=== PATIENT | female | born 1940 | race Caucasian/White ===

== ENCOUNTER 2016-10-30 16:58 | Inpatient (IN) | payer OTHER ==
[~2016-10-30] VITALS: Ht 160 cm; Wt 77.1 kg
--- NOTE | ~2016-10-30 | HC ---
[facility] [place] [address] CONSULTATION Name: AMARILYS FAITH Room #: 424-P ADM IN .R.#: [id number] Admission: 10/30/16 Attend Phys: Dontae Wilson MD Discharge: Date of : 39 Report #: [id number] THIS REPORT FOR: //name// CC: Farhad Wilson REFERRING PHYSICIAN: Dr. Wilson. REASON FOR REFERRAL: Dyspnea. HISTORY OF PRESENT ILLNESS: The patient is a 76-year-old white female who presents to the emergency room with dyspnea. She was found to be anemic. A pulmonary consultation was requested. The patient normally gets her care at [facility]. She is followed by Dr. Farhad Alaniz. She is known to have anemia in the past. She also has a history of COPD along with hypertension. Aside from dyspnea, she denies any fever, night sweats or chills, chest pain or productive cough. Her hemoglobin on admission measured 6.8. PAST MEDICAL HISTORY: Notable for COPD, severity unknown; ; hypercholesterolemia; gastroesophageal reflux disease; breast cancer, status post bilateral lumpectomy; history of peptic ulcer disease; history of anemia; history of falls; peripheral artery disease, status post bilateral external iliac stent placement; left carotid endarterectomy; chronic pain and sciatica. PAST SURGICAL HISTORY: As mentioned above including bilateral hip replacement, left shoulder replacement, oral surgery for maxillary extractions. ALLERGIES: ADHESIVE TAPE, CEPHALOSPORINS, CODEINE, AMOXICILLIN. MEDICATIONS: List reviewed and includes Advair 115 mcg 2 puffs twice a day, along with Claritin D. FAMILY HISTORY: Notable for colon cancer in the maternal grandmother. SOCIAL HISTORY: The patient has smoked, but quit many years ago. She drinks occasionally. REVIEW OF SYSTEMS: As mentioned above. Otherwise 10-point system review negative. PHYSICAL EXAMINATION: GENERAL: She is awake, alert, in no apparent distress. VITAL SIGNS: Temperature is 97.4 degrees Fahrenheit, pulse is 87, respiratory rate is 18, blood pressure 144/54 mmHg, and saturation 98%. [facility] [address] [place] [address] CONSULTATION Name: AMARILYS FAITH Room #: 424-P [facility] IN ..#: [id number] Admission: 10/30/16 Attend Phys: Dontae Wilson MD Discharge: Date of : 39 Report #: [id number] HEENT: Unremarkable. NECK: Supple. CHEST: Breath sounds are clear bilaterally without any rales or wheezes. CARDIOVASCULAR: Normal S1, S2. No murmurs or gallop. There is no JVD. There is no carotid bruit. Pulses are 2+/4+ bilaterally. ABDOMEN: Soft, nontender. It is moderately obese. No masses felt. GENITOURINARY: Deferred. RECTAL: Deferred. EXTREMITIES: There is no edema, cyanosis or clubbing. DIAGNOSTIC DATA: Chest x-ray shows cardiomegaly. The shape of the cardiac silhouette suggests probable right ventricular hypertrophy. No obvious infiltrates seen. Echocardiogram shows mild diastolic dysfunction, moderate aortic stenosis, mild mitral stenosis, pulmonary artery pressure measuring 44 mmHg. EKG shows right bundle-branch block. LABORATORY DATA: Electrolytes unremarkable. WBC 11,200 and hemoglobin 7.1. IMPRESSION: 1. Dyspnea in this 76-year-old white female. She has a history of COPD. She is anemic. Chest x-ray is relatively unremarkable. The etiology is likely multifactorial. It is felt to be related to anemia. Her chronic obstructive pulmonary disease is likely contributing, but does not have obvious evidence of exacerbation. Heart failure is possible though she does not appear to be in overt volume overload. 2. Chronic obstructive pulmonary disease, presumed exacerbation. 3. Anemia, acute on chronic. The patient has possible history of gastrointestinal bleed. GI has been consulted. RECOMMENDATIONS: Agree with bronchodilators. Agree with short course of corticosteroids. DVT and GI prophylaxis will be addressed. We will await GI workup regarding anemia. Thank you for this consultation. <ELECTRONICALLY SIGNED> By: Aj Pavon MD 11/03/16 1518 1633 02 Aj Pavon MD /nt
--- NOTE | ~2016-10-30 | HC ---
[facility] [place] [address] CONSULTATION Name: AMARILYS FAITH Room #: 424-P ADM IN .R.#: [id number] Admission: 10/30/16 Attend Phys: Dontae Wilson MD Discharge: Date of : 39 Report #: [id number] THIS REPORT FOR: //name// CC: Farhad Wilson Steve WRAY DATE OF SERVICE: 10/31/2016 DATE OF CONSULTATION: 10/31/2016 HISTORY OF PRESENT ILLNESS: The patient is a 76-year-old female with a history of chronic anemia, who underwent a colonoscopy by myself last year on 08/16/2015 which showed sigmoid diverticulosis, internal hemorrhoids, but otherwise normal. An upper endoscopy was just performed the week prior by my partner, which was essentially normal. She does take an aspirin on a regular basis. She denies any obvious bright red blood per rectum or melena. Denies any abdominal pain, no nausea or vomiting. Her hemoglobin today is 7.1, was 6.8 yesterday. In 2016, hemoglobin was in the 6th range. The patient denies any reflux or dysphagia. The patient has also been feeling dizzy at home. PAST MEDICAL HISTORY: Chronic anemia, hypertension, COPD, hyperlipidemia, gastroesophageal reflux disease, previous bilateral hip replacement, peripheral vascular disease, history of stent placement iliac, previous carotid endarterectomy, chronic back pain. MEDICATIONS ON ADMISSION: Aspirin 325 mg, iron, Claritin, Advair, fish oil, Lasix, Prinivil, Neurontin, Osteo Bi-Flex, Protonix, Ultram, Zocor. ALLERGIES: KEFLEX, CODEINE, AND AMOXICILLIN. REVIEW OF SYSTEMS: As per HPI. FAMILY HISTORY: Negative for colon cancer. SOCIAL HISTORY: She denies any tobacco or alcohol use. PHYSICAL EXAMINATION: VITAL SIGNS: Temperature is 97.4, pulse 87, blood pressure 144/52, respiratory rate is 18. GENERAL: She is alert and oriented x 3 in no acute distress. HEENT: Sclerae nonicteric. Oropharynx clear. NECK: Supple, without lymphadenopathy. CARDIOVASCULAR: Regular rate. CHEST: With decreased breath sounds bilaterally and slight expiratory wheeze on the right. [facility] [address] [place] [address] CONSULTATION Name: AMARILYS FAITH Room #: [facility] ADM IN .R.#: [id number] Admission: 10/30/16 Attend Phys: Dontae Wilson MD Discharge: Date of : 39 Report #: [id number] ABDOMEN: Soft. She is nontender, nondistended, normoactive bowel sounds. EXTREMITIES: No cyanosis, clubbing or edema. LABORATORY DATA: Sodium 136, potassium 4.2, chloride 101, bicarb 27, BUN 18, creatinine 0.9. Calcium 8.7. WBC is 11.2, hemoglobin 7.1, platelet count is 406. ASSESSMENT AND PLAN: Anemia is chronic, possibly due to gastrointestinal blood loss. There have been no signs of bright red blood per rectum or melena. Would recommend Hemoccult testing next. If positive, then would consider proceeding with an M2 capsule endoscopy as the patient did have an essentially normal EGD and colonoscopy last year. Thank you for allowing me to participate in her care. <ELECTRONICALLY SIGNED> By: Herminio Guevara MD 10/31/16 1816 1306 1410 Herminio Guevara MD /nt
--- NOTE | ~2016-10-30 | EKG ---
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
--- NOTE | ~2016-10-30 | 2DMMODE ---
[facility] [place] [address] [place] [address] 2 D/M-MODE ECHOCARDIOGRAM Name: AMARILYS FAITH Room #: 424-P ADM IN M.R.#: [id number] Admission: 10/30/16 Attend Phys: Precious Crane Discharge: Date of : 39 Date of Service: 10/31/16 1359 Report #: [id number] THIS REPORT FOR: //name// APPROVED REPORT Study performed: 10/31/2016 10:29:06 EXAM: Comprehensive 2D, Doppler, and color-flow Echocardiogram Patient Location: Bedside Room #: 424 Other Information Study Quality: Technically DifficultTechnically Limited Technically limited study due to body habitus, lung disease. Indications COPD Dyspnea Hypertension/HDD 2D Dimensions RVDd: 29.26 mm LVEF(%): 57.59 (>50%) IVSd: 11.72 (7-11mm) LVOT Diam: 15.83 (18-24mm) LVDd: 44.82 mm PWd: 13.34 (7-11mm) Ascending Ao: 31.16 (22-36mm) LVDs: 31.31 (25-40mm) Aortic Root: 25.61 mm IVC: 19.00 mm Ray's LVEF: 57.59 % Volumes Left Atrial Volume (Systole) Single Plane 4CH: 109.13 mL Single Plane 2CH: 56.66 mL LA ESV Index: 48.00 mL/m2 Aortic Valve AoV Peak Price.: 3.32 m/s AO Peak Gr.: 44.06 mmHg LVOT Max P.14 mmHg AO Mean Gr.: 25.31 mmHg LVOT Mean P.09 mmHg AO V2 Mean: 2.38 m/s LVOT Max V: 1.28 m/s AO V2 VTI: 78.17 cm LVOT Mean V: 0.82 m/s ANTOINE (VTI): 0.65 cm2 LVOT V1 VTI: 25.75 cm ANTOINE Vmax: 0.76 cm2 SV (LVOT): 50.[address] [facility] [place] [place] [facility] [email or web address] [address] 2 D/M-MODE ECHOCARDIOGRAM Name: FAITHAMARILYS GUPTA Room #: 424-P [facility] IN .R.#: [id number] Admission: 10/30/16 Attend Phys: Precious Crane Discharge: Date of : 39 Date of Service: 10/31/16 1359 Report #: [id number] Mitral Valve MV Peak Gr.: 18.22 mmHg MV Mean Gr.: 8.36 mmHg MV Decel. Time: 250.88 ms MV Max Price.: 2.13 m/s MV Mean Price.: 1.32 m/s MV VTI: 493.42 mm MVA VTI: 102.67 mm2 MV PHT: 72.75 ms IVRT: 65.74 ms Pulmonary Valve PV Peak Price.: 1.47 m/s PV Peak Gr.: 8.63 mmHg Pulmonary Vein P Vein S: 0.61 m/s P Vein A: 0.14 m/s P Vein D: 0.78 m/s P Vein A Dur.: 51.9 msec P Vein S/D Ratio: 0.78 Tricuspid Valve TR Peak Price.: 3.11 m/s RAP Estimate: 5.00 mmHg TR Peak Gr.: 38.59 mmHg Left Ventricle The left ventricle is normal size. Mild concentric left ventricular hypertrophy. The left ventricular systolic function is normal. The left ventricular ejection fraction is within the normal range. LVEF is 55-60%. Mild diastolic dysfunction is present (impaired relaxation pattern). Right Ventricle The right ventricle is normal size. The right ventricular systolic function is normal. Atria Left atrium is mildly dilated. The right atrium size is normal. Aortic Valve The aortic valve is not well visualized. No aortic regurgitation is present. There is moderate valvular aortic stenosis with maximum pressure gradient of 44 mmHg and mean pressure gradient of 25 mmHg. Mitral Valve [facility] [place] [address] [place] [address] 2 D/M-MODE ECHOCARDIOGRAM Name: AMARILYS FAITH Room #: 424-P ADM IN M.R.#: [id number] Admission: 10/30/16 Attend Phys: Precious Crane Discharge: Date of : 39 Date of Service: 10/31/16 1359 Report #: [id number] Severe mitral annular calcification is present. Trace mitral regurgitation. There is mild mitral stenosis with maximum pressure gradient of 18 mmHg and mean pressure gradient of 8 mmHg. Tricuspid Valve The tricuspid valve is normal in structure. There is trace tricuspid regurgitation. The right atrial pressure is estimated at 5 mmHg. PAP is estimated at 44 mmHg. Pulmonic Valve Pulmonic valve is not well visualized. Great Vessels The aortic root is normal in size. IVC is dilated and collapses >50% with inspiration. <Conclusion> The left ventricle is normal size. Mild concentric left ventricular hypertrophy. The left ventricular systolic function is normal. Mild diastolic dysfunction is present (impaired relaxation pattern). The right ventricle is normal size. Left atrium is mildly dilated. There is moderate valvular aortic stenosis with maximum pressure gradient of 44 mmHg and mean pressure gradient of 25 mmHg. Severe mitral annular calcification is present. There is mild mitral stenosis with maximum pressure gradient of 18 mmHg and mean pressure gradient of 8 mmHg. There is trace tricuspid regurgitation. The right atrial pressure is estimated at 5 mmHg. PAP is estimated at 44 mmHg. <ELECTRONICALLY SIGNED> By: Donta Martel MD 10/31/16 1359 1359 1359 Donta Martel MD /INF
[~2016-10-30 16:58] MED LIST: ADVAIR HFA115 MCG/21 INH; ASPIRIN325 PO; CENTRUM SILVER1 EAC4 PO; CLARITIN-D 12 H1 TA1 PO; CLARITIN10 MG PO; DOXYCYCLINE 10100 MG PO; FISH OIL 1,001000 MG PO; HYDROCODON-ACE1 EAC7 PO; IRON325 PO; LASIX 40 MG TAB40 M2 PO; NEURONTIN 300300 M1 PO; OSTEO BI-FLEX1 EAC1 PO; PLAVIX 75 MG TA75 M1 PO; PRINIVIL20 MG PO; PROAIR HFA8.5 GM INH; PROTONIX40 M1 PO; TRAMADOL 50 MG50 MG PO; ZOCOR40 MG PO
[2016-10-30 17:12] VITALS: BP 128/44
[2016-10-30 18:34] LABS: HEMATOCRIT 21.8 % (37.0-47.0); HEMOGLOBIN 6.8 gm/dL (12.0-15.0); MCH 27.4 pg (26.0-34.0); MCHC 31.1 g/dL (28.0-37.0); MCV 88.3 fL (80.0-100.0); PLATELET COUNT 390 thou/uL (150-400); RBC 2.47 mil/uL (4.20-5.00); WBC 10.8 thou/uL (4.0-11.0)
[2016-10-30 18:35] LABS: MANUAL DIFF YES
[2016-10-30 18:42] LABS: ANION GAP 6 mmol/L (7-16); BUN 18 mg/dL (7-18); CALCIUM 8.4 mg/dL (8.5-10.1); CHLORIDE 99 mmol/L (98-107); CO2 27 mmol/L (21-32); CREATININE 0.9 mg/dL (0.6-1.0); GLUCOSE 96 mg/dL (74-106); POTASSIUM 5.1 mmol/L (3.5-5.1); SODIUM 132 mmol/L (136-145)
[2016-10-30 18:55] LABS: NT-PRO BRAIN NAT PEPTIDE 2629 pg/mL (<300); TROPONIN-I < 0.04 ng/mL (<0.04-0.07)
[2016-10-30 19:01] LABS: ABSOLUTE NEUTROPHILS 8.7 thou/uL (1.4-8.2); ANISOCYTOSIS 1+; TOTAL CELL COUNT 100
[2016-10-30 20:30] VITALS: BP 124/54
[2016-10-30 21:15] VITALS: BP 134/86
[2016-10-30 22:22] VITALS: BP 146/66
[2016-10-31] VITALS (7 sets, daily range): BP systolic 131–149; BP diastolic 51–87
[2016-10-31 05:36] LABS: HEMATOCRIT 22.3 % (37.0-47.0); HEMOGLOBIN 7.1 gm/dL (12.0-15.0); MCH 27.7 pg (26.0-34.0); MCHC 31.8 g/dL (28.0-37.0); MCV 87.1 fL (80.0-100.0); RBC 2.55 mil/uL (4.20-5.00); RDW 17.9 % (10.5-14.5); WBC 11.2 thou/uL (4.0-11.0)
[2016-10-31 06:02] LABS: ANION GAP 8 mmol/L (7-16); BUN 18 mg/dL (7-18); CALCIUM 8.7 mg/dL (8.5-10.1); CHLORIDE 101 mmol/L (98-107); CHOLESTEROL 115 mg/dL (<200); CO2 27 mmol/L (21-32); CREATININE 0.9 mg/dL (0.6-1.0); GLUCOSE 173 mg/dL (74-106); HDL CHOLESTEROL 59 mg/dL (>40); LDL CHOLESTEROL 47 mg/dL (<100); NT-PRO BRAIN NAT PEPTIDE 3384 pg/mL (<300); POTASSIUM 4.2 mmol/L (3.5-5.1); SERUM ASSESSMENT Clear; SODIUM 136 mmol/L (136-145); TC:HDL 1.9 Ratio (Not establshd); TRIGLYCERIDE 46 mg/dL (<150); VLDL 9 mg/dL (<40)
[2016-11-01 03:55] LABS: CALCIUM 8.3 mg/dL (8.5-10.1); CREATININE 0.9 mg/dL (0.6-1.0); POTASSIUM 4.3 mmol/L (3.5-5.1)
[2016-11-01 04:00] VITALS: BP 133/54
[2016-11-01 04:25] LABS: HEMATOCRIT 28.2 % (37.0-47.0); MCH 28.5 pg (26.0-34.0); MCHC 32.8 g/dL (28.0-37.0); PLATELET COUNT 400 thou/uL (150-400); RBC 3.24 mil/uL (4.20-5.00); RDW 17.4 % (10.5-14.5); WBC 13.1 thou/uL (4.0-11.0)
[2016-11-01 04:31] LABS: HEMOGLOBIN 9.2 gm/dL (12.0-15.0); MANUAL DIFF YES
[2016-11-01 05:48] LABS: ABSOLUTE NEUTROPHILS 12.1 thou/uL (1.4-8.2); ANISOCYTOSIS 3+; METAMYELOCYTES 1 %; NUCLEATED RBCS 1 /100WBC; TOTAL CELL COUNT 100
[2016-11-01 05:49] LABS: HYPOCHROMASIA SLIGHT; LARGE PLATELETS OCCASIONAL; MACROCYTES 2+; MICROCYTES 1+; POLYCHROMASIA OCCASIONAL
[2016-11-01 07:56] VITALS: BP 134/46
[2016-11-01 15:56] VITALS: BP 141/50
[2016-11-01 19:39] VITALS: BP 117/45
[2016-11-02 03:22] VITALS: BP 124/50
[2016-11-02 05:33] LABS: HEMATOCRIT 28.9 % (37.0-47.0); HEMOGLOBIN 9.3 gm/dL (12.0-15.0); MCH 28.1 pg (26.0-34.0); MCHC 32.1 g/dL (28.0-37.0); MCV 87.6 fL (80.0-100.0); RBC 3.3 mil/uL (4.20-5.00); RDW 17.9 % (10.5-14.5); WBC 13.3 thou/uL (4.0-11.0)
[2016-11-02 05:46] LABS: CALCIUM 8.7 mg/dL (8.5-10.1); POTASSIUM 4.2 mmol/L (3.5-5.1)
[2016-11-02 07:32] VITALS: BP 130/56
[2016-11-02 15:10] VITALS: BP 149/55
[2016-11-02 19:54] VITALS: BP 133/48
[2016-11-03 03:59] VITALS: BP 152/63
[2016-11-03 05:34] LABS: HEMATOCRIT 31.5 % (37.0-47.0); HEMOGLOBIN 10.2 gm/dL (12.0-15.0); MCH 28.5 pg (26.0-34.0); MCHC 32.4 g/dL (28.0-37.0); MCV 87.8 fL (80.0-100.0); RBC 3.59 mil/uL (4.20-5.00); RDW 17.7 % (10.5-14.5); WBC 13.9 thou/uL (4.0-11.0)
[2016-11-03 05:48] LABS: POTASSIUM 4.2 mmol/L (3.5-5.1)
[2016-11-03 06:06] LABS: CALCIUM 8.8 mg/dL (8.5-10.1); CREATININE 1.2 mg/dL (0.6-1.0)
[2016-11-03 07:39] VITALS: BP 121/44
[2016-11-03 16:11] VITALS: BP 140/56
[2016-11-03 20:00] VITALS: BP 127/56
[2016-11-04 04:00] VITALS: BP 150/54
[2016-11-04 08:20] VITALS: BP 144/65
[2016-11-04] MEDS ORDERED: AUGMENTIN 500-1 EACH PO (09:29)
[2016-11-04] MEDS ORDERED: DUONEB 2.5-0.5 M3 ML INH (09:30)
[2016-11-04] MEDS ORDERED: MEDROL DOSPAK21 TA1 PO (09:31)
[2016-11-04 09:41] VITALS: BP 144/65
[2016-11-04 11:51] VITALS: BP 144/65
[2016-11-04 12:03] VITALS: BP 144/65
[2016-11-04 12:30] VITALS: BP 144/65
== END 2016-11-04 16:33 | disposition home health service (06) | DRG 190 ==
LOC: ER 16:58 → EROBS 20:33 → 4E 20:33
PROVIDERS: Emergency Medicine; Family Medicine; Internal Medicine Pulmonary Disease; Nurse Practitioner Adult Health; Nurse Practitioner Family
PROC: 30233N1 Transfusion of Nonautologous Red Blood Cells into Peripheral Vein, Percutaneous Approach (ICD-10-PCS; principal; 2016-10-31)
DX: J44.1 Chronic obstructive pulmonary disease with (acute) exacerbation (principal); I50.33 Acute on chronic diastolic (congestive) heart failure; K92.2 Gastrointestinal hemorrhage, unspecified; D62 Acute posthemorrhagic anemia; K59.00 Constipation, unspecified; E78.00 Pure hypercholesterolemia, unspecified; I73.9 Peripheral vascular disease, unspecified; M54.30 Sciatica, unspecified side; I50.9 Heart failure, unspecified; I11.0 Hypertensive heart disease with heart failure; K21.9 Gastro-esophageal reflux disease without esophagitis; E78.5 Hyperlipidemia, unspecified; Z96.643 Presence of artificial hip joint, bilateral; Z96.612 Presence of left artificial shoulder joint; Z85.3 Personal history of malignant neoplasm of breast; Z91.81 History of falling; Z98.42 Cataract extraction status, left eye; Z98.41 Cataract extraction status, right eye; Z87.891 Personal history of nicotine dependence; Z95.820 Peripheral vascular angioplasty status with implants and grafts; Z79.51 Long term (current) use of inhaled steroids; Z79.82 Long term (current) use of aspirin; Z79.899 Other long term (current) drug therapy; Z88.1 Allergy status to other antibiotic agents; Z88.8 Allergy status to other drugs, medicaments and biological substances
CPT/HCPCS: 10084

== ENCOUNTER → 2016-11-19 | Outpatient (CLI) | payer OTHER ==
[~2016-11-19] MED LIST changes: +AMBIEN 5 MG TABL5 M1 PO; +ASPIR 8181 MG PO; +AUGMENTIN 500-1 EACH PO; +DULCOLAX STOOL100 MG PO; +DUONEB 2.5-0.5 M3 ML INH; +MEDROL DOSPAK21 TA1 PO
== END | disposition home or self-care (01) ==
LOC: GI 06:59
DX: D64.89 Other specified anemias (principal)

== ENCOUNTER → 2016-11-25 | Outpatient (CLI) | payer OTHER ==
[~2016-11-25] MED LIST changes: -ASPIR 8181 MG PO
== END ==
LOC: HYPER 07:03
DX: T81.89XA Other complications of procedures, not elsewhere classified, initial encounter (principal); L97.812 Non-pressure chronic ulcer of other part of right lower leg with fat layer exposed; N17.9 Acute kidney failure, unspecified; D50.9 Iron deficiency anemia, unspecified; J44.1 Chronic obstructive pulmonary disease with (acute) exacerbation; R06.00 Dyspnea, unspecified; J90 Pleural effusion, not elsewhere classified; J44.9 Chronic obstructive pulmonary disease, unspecified; I11.0 Hypertensive heart disease with heart failure; I50.9 Heart failure, unspecified; E78.00 Pure hypercholesterolemia, unspecified; K21.9 Gastro-esophageal reflux disease without esophagitis; Z85.3 Personal history of malignant neoplasm of breast; Z87.891 Personal history of nicotine dependence; Z72.89 Other problems related to lifestyle; Y83.8 Other surgical procedures as the cause of abnormal reaction of the patient, or of later complication, without mention of misadventure at the time of the procedure

== ENCOUNTER 2016-11-28 11:00 | Inpatient (IN) | payer OTHER ==
[~2016-11-28] VITALS: Ht 160 cm; Wt 98.8 kg
--- NOTE | ~2016-11-28 | HC ---
[facility] [place] [address] CONSULTATION Name: AMARILYS FAITH Room #: 462-P ADM IN .R.#: [id number] Admission: 11/28/16 Attend Phys: Quincy Whaley MD Discharge: Date of : 39 Report #: [id number] THIS REPORT FOR: //name// CC: Farhad Whaley DATE OF SERVICE: 12/01/2016 CHIEF COMPLAINT: Ulcerations versus surgical wounds to the right lower extremity. HISTORY OF PRESENT ILLNESS: This is a 76-year-old female patient who presented to the hospital with shortness of breath and was admitted. We have followed her for surgical wounds involving her right lower leg following Mohs surgery. She is complaining of some pain in that location. Overall, feeling better and feels that she may be able to leave the hospital tomorrow. PAST MEDICAL HISTORY: Positive for acute kidney injury, anemia, COPD and history of gastrointestinal bleeding. ALLERGIES: ADHESIVE, KEFLEX, CODEINE, LEVAQUIN AND AMOXICILLIN. CURRENT MEDICATIONS: Include aspirin, ferrous sulfate, Claritin D, Advair, fish oil, furosemide, hydrocodone, lisinopril, gabapentin, pantoprazole, tramadol and simvastatin. FAMILY HISTORY: Noncontributory. REVIEW OF SYSTEMS: CONSTITUTIONAL: The patient denies fever, chills or weight loss. NEUROLOGICAL: The patient denies focal weakness, numbness or tingling. EYES: The patient denies visual changes. Denies drainage. ENT: The patient denies earache, nasal drainage or sore throat. CARDIOVASCULAR: The patient denies chest pain, palpitation or diaphoresis. PULMONARY: The patient with mild shortness of breath. She is on chronic oxygen. GASTROINTESTINAL: The patient does complain of some abdominal discomfort and notes recent upper GI bleeding. Denies abdominal bloating at present. GENITOURINARY: The patient denies frequency or urgency of urination. Denies dysuria. ORTHOPEDIC: The patient does note ulcerations/surgical wounds to the right lower extremity. Other systems are negative. PHYSICAL EXAMINATION: VITAL SIGNS: The patient's vital signs at this time include temperature 37.7, pulse 91, respiratory rate of 16 and blood pressure of 116/46. [facility] [address] [place] [address] CONSULTATION Name: AMARILYS FAITH Room #: 462-[facility] IN [facility].#: [id number] Admission: 11/28/16 Attend Phys: Quincy Whaley MD Discharge: Date of : 39 Report #: [id number] GENERAL: This is a chronically ill-appearing female patient who appears to be in minimal distress. HEENT: Head normocephalic. clear. NECK: Supple. LUNGS: Diminished. HEART: Regular rhythm. ABDOMEN: Soft, somewhat distended and nontender. LOWER EXTREMITIES: Demonstrate easily palpable distal pulses. She has 2+ distal edema. She has 2 circular wounds involving the right lower leg. There is a mix of some granulation and a little bit of fibrin. No evidence of infection. NEUROLOGIC: She is alert, oriented and appropriate. LABORATORY DATA: Includes white blood cell count 10.7, hemoglobin 7.3, hematocrit 22.8 and platelet count is 396,000. Sodium 140, potassium 4.2, chloride 106, CO2 of 24, BUN 10, creatinine 0.8 and glucose 127. CLINICAL IMPRESSION: 1. Surgical wounds to the right lower extremity following Mohs surgery. 2. Chronic obstructive pulmonary disease. 3. Upper gastrointestinal bleeding. RECOMMENDATIONS: At this point in time, we will use topical Medihoney to the open areas, followed by a foam secondary dressing, elevation when possible. This could be changed on a Wednesday, Wednesday and Wednesday basis. Continue nutritional support. Continue all medications. I appreciate being asked to see her in consultation. <ELECTRONICALLY SIGNED> By: Blaise Fiore MD 12/02/16 1030 1940 0145 Blaise Fiore MD /nt
--- NOTE | ~2016-11-28 | HC ---
[facility] [place] [address] CONSULTATION Name: AMARILYS FAITH Room #: 462-P [facility] IN ..#: [id number] Admission: 11/28/16 Attend Phys: Quincy Whaley MD Discharge: Date of : 39 Report #: [id number] THIS REPORT FOR: //name// CC: Farhad Whaley MD DATE OF SERVICE: 11/29/2016 REQUESTING PROVIDER: Quincy Whaley MD REASON FOR CONSULTATION: GI bleed, anemia. HISTORY OF PRESENT ILLNESS: This is a 76-year-old female who is readmitted with again a drop in her hemoglobin, but no overt sign of GI blood loss. The patient apparently had an EGD and a colonoscopy very recently and it was normal, just like what it was a year ago. The patient also had a capsule study of her small bowel recently. Unfortunately, I cannot find the reports of this at this time. This was done, I believe, approximately 11 or 12 days ago now. I will have to check into our system that we have through the office as well. Again, there has been no overt sign of bleeding, however. PAST MEDICAL HISTORY: Extensive and reviewable in the computerized medical records. CURRENT MEDICATIONS: Include albuterol, atorvastatin, Dulcolax, ferrous sulfate, gabapentin, hydrocodone, lisinopril, pantoprazole twice a day p.o., MiraLax, Zofran and Ambien, both of the latter 2 are p.r.n. ALLERGIES: There are multiple drug allergies including CODEINE, CEPHALEXIN, AMOXICILLIN and LEVOFLOXACIN. FAMILY AND SOCIAL HISTORY: Noncontributory. PHYSICAL EXAMINATION: VITAL SIGNS: Since admission, she has been afebrile. She has been hemodynamically stable. LUNGS: Clear. CARDIOVASCULAR: Regular rhythm. ABDOMEN: Soft and nontender. LABORATORY DATA: Her BUN is 30, creatinine is 1. Electrolytes are normal. LFTs are normal. Albumin is 3.0. BNP is 3384. She has a low iron and TIBC that is on the high end of normal and a low iron percent saturation. PT and PTT are normal. White count is normal, hemoglobin 6.1, platelet count is normal. [address] [address] CONSULTATION Name: AMARILYS FAITH Room #: 462- ADM IN M.R.#: [id number] Admission: 11/28/16 Attend Phys: Quincy Whaley MD Discharge: Date of : 39 Report #: [id number] IMPRESSION: Iron deficiency anemia that is recurrent. There has been no overt sign of GI blood loss. The patient has had a recent EGD and colonoscopy along with previous EGD and colonoscopies that have been nonrevealing. Apparently, the patient had a capsule study. I need to try to figure out the results of that and whether it has been read yet. I cannot find it in the system here at the hospital, so I will check our office system to see if Dr. Guevara had looked at that yet, but let us see what that shows and my recommendation, otherwise is to continue close clinical followup and transfuse as necessary. <ELECTRONICALLY SIGNED> By: Herminio Guevara MD 12/02/16 1005 0600 1313 Edgar Do MD /nt
--- NOTE | ~2016-11-28 | P ---
[facility] [place] [address] PROCEDURE REPORT Name: AMARILYS FAITH Room #: 462-P [facility] IN .R.#: [id number] Admission: 11/28/16 Attend Phys: Quincy Whaley MD Discharge: Date of : 39 Report #: [id number] THIS REPORT FOR: //name// CC: Farhad Whaley BRIEF HISTORY: The patient is a 76-year-old woman with recurrent anemia and Hemoccult positive stools. Within the past year, she has had colonoscopy and upper endoscopy, which have been nondiagnostic. M2 capsule done recently revealed at least 1 nonbleeding AVM of the duodenum and a small blood clot in the very proximal jejunum. Small-bowel endoscopy was recommended. PREOPERATIVE DIAGNOSIS: Gastrointestinal bleeding. POSTOPERATIVE DIAGNOSES: 1. 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 3. Small hiatus hernia. MEDICATIONS: Deep sedation with propofol per anesthesia. SPECIMEN: None. ESTIMATED BLOOD LOSS: 5 mL. PROCEDURE: Small-bowel endoscopy with hemostasis. FINDINGS: Prior to propofol sedation, the procedure of small-bowel endoscopy and intervention was discussed with the patient as well as potential risks, benefits, and complications. She indicates she understands and desires to proceed. With the patient in left lateral decubitus position, the [employer] video endoscope was inserted in the cervical esophagus under direct vision without difficulty. Examination of this organ through its entire length revealed normal esophageal mucosa. There was also a small 2 cm sliding type hiatus hernia. There was no blood within the hiatus hernia. The scope was advanced into the stomach, which was examined on end view as well as retroflexed views. In the body of the posterior gastric wall, a prominent was seen, it was not bleeding, but was suspicious for an AVM and was treated with a BICAP probe with good results. The stomach was then examined on end view as well as retroflexed views. No other mucosal abnormalities were seen. No masses were seen in the cardia. The pylorus was normal. Upon introduction of the scope into the duodenal bulb, there was a small collection of red blood. It was washed away and the underlying mucosa was normal. We could not find any lesions within the duodenal bulb to cause bleeding. This may have reflux from the more distal duodenum. In [facility] [address] [place] [address] PROCEDURE REPORT Name: AMARILYS FAITH Room #: 462-P [facility] IN [facility]#: [id number] Admission: 11/28/16 Attend Phys: Quincy Whaley MD Discharge: Date of : 39 Report #: [id number] the second and third portion of duodenum, 2 AVMs were seen. Two were seen in third portion of duodenum. One had a typical appearance of an AVM, was destroyed with the BICAP probe. The second, once it was touched, started oozing blood briskly and with multiple applications of BICAP probe, bleeding was controlled. We then advanced the scope through the entire duodenal sweep and into the jejunum and past the scope as far as possible into the mid jejunum. Upon slow withdrawal of the scope, the mucosa was inspected. No additional bleeding lesions were seen. No other vascular ectasias were seen. The scope was withdrawn. The patient tolerated the procedure well. DISPOSITION: The patient with GI bleeding on several occasions. Four small-bowel AVMs and one gastric AVM were identified and treated. We will monitor hemoglobin. The patient should take iron and have her hemoglobin monitor as an outpatient. If she has further bleeding or further evidence of blood loss, repeat an M2 capsule study may be reasonable. If further intervention needed, she may require a double balloon endoscopy at a tertiary facility. <ELECTRONICALLY SIGNED> By: Cristian Gómez MD 12/01/16 1601 1210 1259 Cristian Gómez MD /nt
--- NOTE | ~2016-11-28 | EKG ---
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: SERGIO : 1940 Requested By: Avinash Bradshaw Order Number: [id number] MD: Rajesh Mccollum Measurements Intervals [place] Rate: 86 P: 61 WA: 200 QRS: 13 QRSD: 151 T: 12 QT: 399 QTc: 478 Interpretive Statements Sinus rhythm Right bundle branch block Compared to ECG 10/30/2016 18:38:45 No significant changes Electronically Signed On 11-30-2016 13:35:06 CDT by Rajesh Mccollum [email or web address] <ELECTRONICALLY SIGNED> By: Rajesh Mccollum MD, [facility] 11/30/16 1335 1155 115 Rajesh Mccollum MD, [facility] /EPI
[2016-11-28 11:00] VITALS: BP 111/69
[~2016-11-28 11:00] MED LIST changes: -AMBIEN 5 MG TABL5 M1 PO; -DULCOLAX STOOL100 MG PO
[2016-11-28 11:55] LABS: MCV 87.6 fL (80.0-100.0); PLATELET COUNT 528 thou/uL (150-400); RBC 2.19 mil/uL (4.20-5.00); WBC 9.4 thou/uL (4.0-11.0)
[2016-11-28 11:56] LABS: ANION GAP 7 mmol/L (7-16); BUN 35 mg/dL (7-18); CALCIUM 9.1 mg/dL (8.5-10.1); CHLORIDE 102 mmol/L (98-107); CO2 28 mmol/L (21-32); CREATININE 1.3 mg/dL (0.6-1.0); GLUCOSE 131 mg/dL (74-106); MANUAL DIFF YES; POTASSIUM 4.9 mmol/L (3.5-5.1); SODIUM 137 mmol/L (136-145)
[2016-11-28 11:57] LABS: HEMATOCRIT 19.1 % (37.0-47.0); HEMOGLOBIN 6.1 gm/dL (12.0-15.0)
[2016-11-28 12:02] LABS: ALKALINE PHOSPHATASE 102 U/L (46-116); DIRECT BILIRUBIN < 0.1 mg/dL (<0.1-0.3); SGOT 28 U/L (15-37); SGPT 20 U/L (30-65); TOTAL BILIRUBIN 0.2 mg/dL (<0.1-1.0)
[2016-11-28 12:04] LABS: APTT 26.6 Seconds (24.5-32.8); PROTIME 9.5 Seconds (9.3-11.4)
[2016-11-28 12:43] LABS: ANISOCYTOSIS 2+; POLYCHROMASIA 1+; TOTAL CELL COUNT 100
[2016-11-28 12:44] LABS: HYPOCHROMASIA 2+; OVALOCYTES FEW; POIKILOCYTOSIS SLIGHT
[2016-11-28 14:06] VITALS: BP 103/40
[2016-11-28 14:42] VITALS: BP 112/32
[2016-11-28 15:00] VITALS: BP 113/34
[2016-11-28] MEDS ORDERED: DULCOLAX STOOL100 MG PO (19:31)
[2016-11-28] MEDS ORDERED: AMBIEN 5 MG TABL5 M1 PO (19:32)
[2016-11-28 20:10] VITALS: BP 119/48
[2016-11-28 20:45] VITALS: BP 105/44; BP 107/38
[2016-11-29 02:57] LABS: WBC 8.2 thou/uL (4.0-11.0)
[2016-11-29 02:59] LABS: MCH 28.8 pg (26.0-34.0); MCHC 32.3 g/dL (28.0-37.0); MCV 89.3 fL (80.0-100.0); RBC 2.13 mil/uL (4.20-5.00)
[2016-11-29 03:06] LABS: CALCIUM 8.4 mg/dL (8.5-10.1); POTASSIUM 4.3 mmol/L (3.5-5.1)
[2016-11-29 03:10] LABS: HEMOGLOBIN 6.1 gm/dL (12.0-15.0)
[2016-11-29 04:00] VITALS: BP 137/50
[2016-11-29 07:55] VITALS: BP 121/36
[2016-11-29 11:18] LABS: MCH 28.7 pg (26.0-34.0)
[2016-11-29 11:20] LABS: MCHC 31.9 g/dL (28.0-37.0); RBC 1.77 mil/uL (4.20-5.00); RDW 19.1 % (10.5-14.5); WBC 6.2 thou/uL (4.0-11.0)
[2016-11-29 11:25] LABS: HEMATOCRIT 15.9 % (37.0-47.0); HEMOGLOBIN 5.1 gm/dL (12.0-15.0)
[2016-11-29 12:06] VITALS: BP 122/33
[2016-11-29 12:13] VITALS: BP 117/43; BP 120/41; BP 122/33
[2016-11-29 15:03] VITALS: BP 117/43
[2016-11-29 17:07] LABS: HEMATOCRIT 23.7 % (37.0-47.0)
[2016-11-29 17:11] LABS: HEMOGLOBIN 7.8 gm/dL (12.0-15.0)
[2016-11-30 04:37] VITALS: BP 132/56
[2016-11-30 04:45] LABS: HEMATOCRIT 22.9 % (37.0-47.0); HEMOGLOBIN 7.8 gm/dL (12.0-15.0); MCH 29.9 pg (26.0-34.0); MCHC 33.9 g/dL (28.0-37.0); MCV 88.1 fL (80.0-100.0); RBC 2.6 mil/uL (4.20-5.00); RDW 17.5 % (10.5-14.5); WBC 9.7 thou/uL (4.0-11.0)
[2016-11-30 05:03] LABS: CALCIUM 8.5 mg/dL (8.5-10.1); CREATININE 0.8 mg/dL (0.6-1.0); POTASSIUM 4.2 mmol/L (3.5-5.1)
[2016-11-30 08:10] VITALS: BP 130/48
[2016-11-30 12:58] VITALS: BP 124/61
[2016-11-30 16:00] VITALS: BP 129/95
[2016-11-30 20:29] VITALS: BP 122/89
[2016-12-01 04:19] VITALS: BP 130/34
[2016-12-01 04:57] LABS: HEMATOCRIT 22.8 % (37.0-47.0); HEMOGLOBIN 7.3 gm/dL (12.0-15.0); MCH 28.3 pg (26.0-34.0); MCHC 32.1 g/dL (28.0-37.0); RBC 2.59 mil/uL (4.20-5.00); RDW 18.1 % (10.5-14.5); WBC 10.7 thou/uL (4.0-11.0)
[2016-12-01 05:10] LABS: CALCIUM 8.5 mg/dL (8.5-10.1); CREATININE 0.8 mg/dL (0.6-1.0); POTASSIUM 4.2 mmol/L (3.5-5.1)
[2016-12-01 08:48] VITALS: BP 135/60
[2016-12-01 13:48] VITALS: BP 145/75
[2016-12-01 15:10] VITALS: BP 145/75
[2016-12-01 17:18] VITALS: BP 123/57
[2016-12-01 19:26] VITALS: BP 116/46
[2016-12-02 03:43] VITALS: BP 84/53
[2016-12-02 06:07] LABS: HEMOGLOBIN 7.3 gm/dL (12.0-15.0); MCH 28.8 pg (26.0-34.0); MCV 87.3 fL (80.0-100.0); RBC 2.52 mil/uL (4.20-5.00); RDW 18.1 % (10.5-14.5); WBC 10.3 thou/uL (4.0-11.0)
[2016-12-02 08:11] VITALS: BP 142/45
[2016-12-02 12:39] VITALS: BP 140/52
[2016-12-02] MEDS ORDERED: ASPIR 8181 MG PO (13:12)
== END 2016-12-02 15:11 | disposition home health service (06) | DRG 378 ==
LOC: ER 11:00 → 4S 13:54 → 4W 13:54 → EROBS 13:54 → 4S 14:44 → 4W 11-29 23:28 → ENTRNSPT 12-02 14:47 → 4W 12-02 15:11
PROVIDERS: Emergency Medicine; Hospitalist; Specialist
PROC: 30233N1 Transfusion of Nonautologous Red Blood Cells into Peripheral Vein, Percutaneous Approach (ICD-10-PCS; 2016-11-29)
PROC: 0DJ08ZZ Inspection of Upper Intestinal Tract, Via Natural or Artificial Opening Endoscopic (ICD-10-PCS; principal; 2016-12-01)
DX: K31.811 Angiodysplasia of stomach and duodenum with bleeding (principal); D62 Acute posthemorrhagic anemia; I50.32 Chronic diastolic (congestive) heart failure; N17.9 Acute kidney failure, unspecified; J44.9 Chronic obstructive pulmonary disease, unspecified; E78.00 Pure hypercholesterolemia, unspecified; K21.9 Gastro-esophageal reflux disease without esophagitis; Z96.643 Presence of artificial hip joint, bilateral; I73.9 Peripheral vascular disease, unspecified; G89.29 Other chronic pain; M54.9 Dorsalgia, unspecified; M54.30 Sciatica, unspecified side; Z96.612 Presence of left artificial shoulder joint; D50.9 Iron deficiency anemia, unspecified; K44.9 Diaphragmatic hernia without obstruction or gangrene; E78.5 Hyperlipidemia, unspecified; I11.0 Hypertensive heart disease with heart failure; K59.00 Constipation, unspecified; Z90.49 Acquired absence of other specified parts of digestive tract; Z85.3 Personal history of malignant neoplasm of breast; Z98.42 Cataract extraction status, left eye; Z98.41 Cataract extraction status, right eye; Z91.81 History of falling; Z79.899 Other long term (current) drug therapy; Z88.8 Allergy status to other drugs, medicaments and biological substances; Z88.6 Allergy status to analgesic agent; Z88.1 Allergy status to other antibiotic agents; Z87.891 Personal history of nicotine dependence; Z85.828 Personal history of other malignant neoplasm of skin
CPT/HCPCS: 10045; 10100; 62110; 62900; 70005

== ENCOUNTER → 2016-12-09 | Outpatient (CLI) | payer OTHER ==
[~2016-12-09] MED LIST changes: +AMBIEN 5 MG TABL5 M1 PO; +ASPIR 8181 MG PO; +DULCOLAX STOOL100 MG PO
== END ==
LOC: HYPER 06:43
DX: T81.89XD Other complications of procedures, not elsewhere classified, subsequent encounter (principal); L97.812 Non-pressure chronic ulcer of other part of right lower leg with fat layer exposed; J44.1 Chronic obstructive pulmonary disease with (acute) exacerbation; E78.00 Pure hypercholesterolemia, unspecified; K21.9 Gastro-esophageal reflux disease without esophagitis; H26.9 Unspecified cataract; I73.9 Peripheral vascular disease, unspecified; I11.0 Hypertensive heart disease with heart failure; I50.9 Heart failure, unspecified; Z85.828 Personal history of other malignant neoplasm of skin; Z85.3 Personal history of malignant neoplasm of breast; Z87.01 Personal history of pneumonia (recurrent); Z96.643 Presence of artificial hip joint, bilateral; Z96.612 Presence of left artificial shoulder joint; Z87.891 Personal history of nicotine dependence; Z72.89 Other problems related to lifestyle; Y83.8 Other surgical procedures as the cause of abnormal reaction of the patient, or of later complication, without mention of misadventure at the time of the procedure

== ENCOUNTER → 2016-12-23 | Outpatient (CLI) | payer OTHER | LOC: HYPER 07:07 | DX: T81.89XD Other complications of procedures, not elsewhere classified, subsequent encounter (principal); L97.812 Non-pressure chronic ulcer of other part of right lower leg with fat layer exposed; J44.1 Chronic obstructive pulmonary disease with (acute) exacerbation; E78.00 Pure hypercholesterolemia, unspecified; K21.9 Gastro-esophageal reflux disease without esophagitis; H26.9 Unspecified cataract; I73.9 Peripheral vascular disease, unspecified; I11.0 Hypertensive heart disease with heart failure; I50.9 Heart failure, unspecified; Z85.828 Personal history of other malignant neoplasm of skin; Z85.3 Personal history of malignant neoplasm of breast; Z87.01 Personal history of pneumonia (recurrent); Z96.643 Presence of artificial hip joint, bilateral; Z96.612 Presence of left artificial shoulder joint; Z87.891 Personal history of nicotine dependence; Z72.89 Other problems related to lifestyle; Y83.8 Other surgical procedures as the cause of abnormal reaction of the patient, or of later complication, without mention of misadventure at the time of the procedure ==

== ENCOUNTER → 2017-01-04 | Outpatient (CLI) | payer OTHER | LOC: HYPER 06:59 | DX: T81.89XD Other complications of procedures, not elsewhere classified, subsequent encounter (principal); L97.812 Non-pressure chronic ulcer of other part of right lower leg with fat layer exposed; N17.9 Acute kidney failure, unspecified; D50.9 Iron deficiency anemia, unspecified; J44.1 Chronic obstructive pulmonary disease with (acute) exacerbation; R06.00 Dyspnea, unspecified; J90 Pleural effusion, not elsewhere classified; E78.00 Pure hypercholesterolemia, unspecified; K21.9 Gastro-esophageal reflux disease without esophagitis; Z85.3 Personal history of malignant neoplasm of breast; I73.9 Peripheral vascular disease, unspecified; I11.0 Hypertensive heart disease with heart failure; I50.9 Heart failure, unspecified; Z85.828 Personal history of other malignant neoplasm of skin; Z87.891 Personal history of nicotine dependence; Z72.89 Other problems related to lifestyle; Y83.8 Other surgical procedures as the cause of abnormal reaction of the patient, or of later complication, without mention of misadventure at the time of the procedure ==

== ENCOUNTER 2018-06-29 11:17 | Inpatient (IN) | payer OTHER ==
[~2018-06-29] VITALS: Ht 160 cm; Wt 93.4 kg
[2018-06-29 11:17] VITALS: BP 128/46
[2018-06-29 12:06] LABS: ABSOLUTE NEUTROPHILS 6.4 thou/uL (1.4-8.2); BASOPHILS 0.5 % (0.0-2.0); EOSINOPHILS 1.4 % (0.0-3.0); HEMATOCRIT 30.6 % (37.0-47.0); LYMPHOCYTES 11.5 % (24.0-44.0); MCH 28.2 pg (26.0-34.0); MCHC 32.8 g/dL (28.0-37.0); MONOCYTES 8.8 % (1.0-8.0); PLATELET COUNT 429 thou/uL (150-400); POLYS 77.8 % (36.0-66.0); RBC 3.56 mil/uL (4.20-5.00); RDW 16.6 % (10.5-14.5); WBC 8.2 thou/uL (4.0-11.0)
[2018-06-29 12:17] LABS: ANION GAP 9 mmol/L (7-16); BUN 17 mg/dL (7-18); CALCIUM 9.1 mg/dL (8.5-10.1); CHLORIDE 100 mmol/L (98-107); CO2 28 mmol/L (21-32); CREATININE 0.9 mg/dL (0.6-1.0); GLUCOSE 113 mg/dL (74-106); POTASSIUM 4.3 mmol/L (3.5-5.1); SODIUM 137 mmol/L (136-145)
[2018-06-29 12:26] LABS: ALBUMIN 2.9 g/dL (3.4-5.0); SGOT 23 U/L (15-37); SGPT 22 U/L (30-65); TOTAL BILIRUBIN 0.2 mg/dL (<0.1-1.0); TOTAL PROTEIN 7.1 g/dL (6.4-8.2); TROPONIN-I <0.06 ng/mL (<0.06)
[2018-06-29] MEDS ORDERED: ADVAIR 250-501 EACH INH (14:00)
[2018-06-29] MEDS ORDERED: LASIX 20 MG TAB20 MG PO (14:00)
[2018-06-29] MEDS ORDERED: LISINOPRIL10 MG PO (14:01)
[2018-06-29] MEDS ORDERED: CLARITIN-D 121 EAC1 PO (14:03)
[2018-06-29] MEDS ORDERED: FISH OIL 1,001000 M2 PO ×2 (14:04→14:05)
[2018-06-29] MEDS ORDERED: SENNA8.6 MG PO (14:06)
[2018-06-29] MEDS ORDERED: VENTOLIN HFA INH8 GM INH (14:08)
[2018-06-29 15:47] VITALS: BP 115/93
[2018-06-29 16:24] VITALS: BP 135/64
[2018-06-29 17:32] VITALS: BP 148/74
[2018-06-29] MEDS ORDERED: ADVAIR HFA 230M12 GM INH (17:35)
[2018-06-29] MEDS ORDERED: CLARITIN10 MG PO (17:36)
[2018-06-29] MEDS ORDERED: NORCO 5-325 TA1 EACH PO (17:38)
[2018-06-29] MEDS ORDERED: PROTONIX40 M1 PO (17:39)
--- NOTE | 2018-06-29 17:49 | NUR ---
PT ARRIVED FROM ED 1700 FOR BILATERAL PNUEMONIA. A/OX4, DENIES PAIN, LUNGS WHEEZE ALL LOBES ON 2L WHICH SHE DOES NOT USE O2 AT HOME. STATES SHE USES WALKER TO AMBULATE.HX OF LEFT TOTAL KNEE AND LEFT SHOULDER INJURY. 2/1 PULSES. MS WITH TRACE EDEMA. PT STATED SHE DID NOT TAKE LASIX TODAY. CONTINENT TO COMMODE WITH [address] PRECAUTIONS IN PL[address]. CALL LIGHT IN REACH. ABLE TO MAKE NEEDS KNOWN. ADMISSION ASSESMENT AND HISTORY COMPLETED.
[2018-06-29 19:16] VITALS: BP 150/68
--- NOTE | 2018-06-30 03:14 | NUR ---
ASSUMED CARE AROUND 1900. AXOX4. ADMITTED WITH PNA/COPD. BREATHING TX PER MD ORDER. IV ATB AND IV SOLUMEDROL PER MD ORDER. NO S/S ACUTE DISTRESS NOTED OR REPORTED AT THIS TIME. WILL CONT TO MONITOR FOR ANY CHANGES IN CONDITION.
[2018-06-30 03:21] VITALS: BP 167/79
[2018-06-30 05:50] LABS: HEMOGLOBIN 10.4 gm/dL (12.0-15.0); MCHC 32.5 g/dL (28.0-37.0); MCV 86.2 fL (80.0-100.0); RBC 3.72 mil/uL (4.20-5.00); RDW 16.2 % (10.5-14.5); WBC 7.2 thou/uL (4.0-11.0)
[2018-06-30 06:05] LABS: CALCIUM 8.9 mg/dL (8.5-10.1); CREATININE 0.8 mg/dL (0.6-1.0); POTASSIUM 4.6 mmol/L (3.5-5.1)
[2018-06-30 07:46] VITALS: BP 159/75
--- NOTE | 2018-06-30 08:20 | EKG ---
[address] [place] [address] ELECTROCARDIOGRAM REPORT Name: AMARILYS FAITH Room #: 450- ADM IN M.R.#: [id number] ������������������ Admission: 06/29/18 ������������������ Attend Phys: Shaggy Cerna MD Discharge: ������������������ Date of : 38 Report #: [id number] ����������������������������������������������������������������� [id number] THIS REPORT FOR: //name// [facility] ED Test Date: 2018-06-29 Test Time: 11:27:49 Pat Name: AMARILYS FAITH Department: Room: [facility] Gender: F Operations Technician: : 1940 Requested By: Avinash Bradshaw Order Number: [id number] MD: Christiano Butt Measurements Intervals [place] Rate: 84 P: 69 AK: 192 QRS: -25 QRSD: 152 T: 28 QT: 403 QTc: 477 Interpretive Statements Sinus rhythm Right bundle branch block Compared to ECG 11/28/2016 11:55:19 No significant changes Electronically Signed On 06-30-2018 8:20:12 CDT by Christiano Butt [email or web address] ��������������������������������������������� <ELECTRONICALLY SIGNED> ���������������������������������������� By: Christiano Butt MD ��������������������������������������������� 06/30/18 0820 1127 26 Christiano Butt MD /NOLA
--- NOTE | 2018-06-30 10:00 | NUR ---
cm visited with pt at bedside, she was sitting up in recliner chair. a & o x 3, pleasant and able to make her needs know. not pt wearing o2 per nc. intro to cm, transition of care and home health. " i might need home health, use the h[facility]. no past rehab. live with . few steps with hand rails in to home. stairs 10 with hand rail to basement laundry room. have home care that comes every to weeks to do laundry. have groceries delivered to home by oswaldo krishnamurthy or my niece help out as well as my . he help me dress upper body rt shoulders. use walker. have grab bars in bathroom and shower. manage own medication in 7 day pill box. have nebulizer, no home oxygen. have not been driving in while. home health to have nurse come and check me when home would be nice"/aries. possible need o2 stat and exercise if unable to harry pt off oxygen prior to dc. will cont following as needed for dc needs. dcp home vs home with chcs if recommended
--- NOTE | 2018-06-30 14:03 | NUR ---
ASSUMED CARE 0700, ALERT X4, PAIN MANAGED WITH MEDICATIONS, VSS, LUNGS SOUNDS COURSE/WHEEZING, ON 4L NC WITH SOB WITH AMBULATIONS. CONGESTED COUGH WITH GOOD EFFECTIVENESS. ON BREATHING TS. BATH PROVIDED. WORKED WITH PT AND OT TODAY. UP TO COMMODE WITH ASSISTANCE. FALL PRECAUTIONS AND CALL LIGHT IN PLACE.
[2018-06-30 15:47] VITALS: BP 146/48
[2018-06-30 19:10] VITALS: BP 135/54
--- NOTE | 2018-07-01 01:53 | NUR ---
PT USED CALL LIGHT EFFECTIVELY NO COMPLAINTS OF PAIN NO ISSUES OVERNIGHT.
[2018-07-01 02:38] VITALS: BP 123/85
[2018-07-01 05:27] LABS: CALCIUM 8.7 mg/dL (8.5-10.1); CREATININE 0.9 mg/dL (0.6-1.0); HEMATOCRIT 31.6 % (37.0-47.0); MCH 27.5 pg (26.0-34.0); MCHC 31.6 g/dL (28.0-37.0); POTASSIUM 4.3 mmol/L (3.5-5.1); RBC 3.63 mil/uL (4.20-5.00); RDW 16.3 % (10.5-14.5); WBC 14.1 thou/uL (4.0-11.0)
--- NOTE | 2018-07-01 06:29 | NUR ---
PT ON 5L OF O2 UP FROM 3 PT HAS AUDIBLE WHEEZES AND COMPLAINING OF SOB PROVIDER CALLED ORDERS RECIEVED
[2018-07-01 07:06] VITALS: BP 164/70
[2018-07-01 10:30] VITALS: BP 164/70
[2018-07-01 14:36] VITALS: BP 164/70
--- NOTE | 2018-07-01 14:37 | NUR ---
CARE TEAM INDICATED THAT PT WILL LIKELY BE DISCHARGE THIS WEEKEND. PT HAD BEEN ON SERVICE WITH [facility] IN THE PAST. CM SENT REFERRAL TO THEM AND THEY ARE ABLE TO ACCEPT PT UPON DC FOR PT, OT, AND NURSING. FAX ORDERS TO ([phone]. IT ISN'T ANTICPATED THAT PT WILL HAVE ANY OTHER NEEDS UPON DC. CM ABLE TO ASSIST SHOULD ANY DC NEEDS ARISE.
[2018-07-01 15:57] VITALS: BP 142/69
--- NOTE | 2018-07-01 18:22 | NUR ---
PT INCREASE SOB THIS MORNING. LASIX RESTARTED. DR SMALLS ROUNDED WITH LASIX ORDER AND LIMIT FLUID INTAKE. NO PT OR OT TODAY DUE TO SOB. CALLS APPROPRIATLEY. FALL PRECAUTIONS IN PLACE
[2018-07-01 19:35] VITALS: BP 151/60
--- NOTE | 2018-07-02 01:41 | NUR ---
PT UP MOST OF THE NIGHT PT GIVEN TRAMADOL FOR PAIN PT USED CALL LIGHT EFFECTIVELY NO ISSUES OVERNIGHT.
[2018-07-02 04:14] VITALS: BP 144/67
[2018-07-02 06:01] LABS: CALCIUM 8.6 mg/dL (8.5-10.1); CREATININE 0.9 mg/dL (0.6-1.0); POTASSIUM 4.8 mmol/L (3.5-5.1)
[2018-07-02 07:24] VITALS: BP 156/56
[2018-07-02 15:34] VITALS: BP 140/59
--- NOTE | 2018-07-02 17:40 | NUR ---
PT STABLE THROUGHOUT SHIFT.PT UP TO CHAIR FOR MAJORITY OF SHIFT WHICH SHE TOLERATED WELL. FAMILY AT BEDSIDE, WILL CONTINUE TO MONITOR.
[2018-07-02 20:13] VITALS: BP 146/57
--- NOTE | 2018-07-03 02:03 | NUR ---
PT GIVEN TRAMADOL AND TYENOL FOR PAIN PT UP MOST OF THE NIGHT PT USED CALL LIGHT EFFECTIVELY.
[2018-07-03 03:20] VITALS: BP 156/68
[2018-07-03 05:17] LABS: HEMATOCRIT 30.8 % (37.0-47.0); HEMOGLOBIN 9.7 gm/dL (12.0-15.0); MCH 27.2 pg (26.0-34.0); MCHC 31.3 g/dL (28.0-37.0); MCV 86.6 fL (80.0-100.0); RBC 3.56 mil/uL (4.20-5.00); RDW 16.3 % (10.5-14.5); WBC 14.5 thou/uL (4.0-11.0)
[2018-07-03 05:36] LABS: ALBUMIN 2.8 g/dL (3.4-5.0); CALCIUM 8.8 mg/dL (8.5-10.1); CREATININE 0.8 mg/dL (0.6-1.0); PHOSPHORUS 3.7 mg/dL (2.5-4.9); POTASSIUM 4.6 mmol/L (3.5-5.1)
[2018-07-03 07:14] VITALS: BP 135/59
[2018-07-03 14:13] VITALS: BP 120/55
--- NOTE | 2018-07-03 15:12 | NUR ---
TOWARDS POC PT A/O X4, VSS, AFEBRILE, DENIES PAIN. REMAINED ON 4L O2. WHEEZY AT TIMES. TAP WATER ENEMA PROVIDE X1. PT HAD A MEDIUM SOFT BM AFTER ENEMA. PT XFER TO SS. REPORT CALLED TO SS RN. PT ON RM 224.
--- NOTE | 2018-07-03 15:58 | NUR ---
PATIENT TRANSFERRED TO UNIT FROM 4W ROOM #450 TO ROOM #224. PATIENT ORIENTED TO UNIT AND SETTLED.
[2018-07-03 16:31] VITALS: BP 143/62
[2018-07-03 20:07] VITALS: BP 146/63
--- NOTE | 2018-07-04 04:18 | NUR ---
PATIENTS CARES WERE ASSUMED AT SHIFT CHANGE. PATIENT WAS ASSESSED AND MEDS WERE PASSED.PATIENT HAS SHORTNESS OF BREATH WITH ACTIVITY. JUST PULL UP IN THE BED THE PATIENT GET REAL WINDED. PATIENT DID GET UP TO URINATE AND REQUESTED A BREATHING TREATMENT. RESP TREATMENT DID COME TO GIVE HER A TREATMENT. HOURLY ROUNDING WAS DONE AND WAS ABLE TO SLEEP MOST OF THIS SHIFT. THE BED IS IN A LOW AND LOCKED POSITION. THE BED ALARM IS ON.
[2018-07-04 05:53] LABS: HEMATOCRIT 30.7 % (37.0-47.0); HEMOGLOBIN 9.6 gm/dL (12.0-15.0); MCHC 31.3 g/dL (28.0-37.0); MCV 86.3 fL (80.0-100.0); RBC 3.56 mil/uL (4.20-5.00); RDW 16.5 % (10.5-14.5)
[2018-07-04 06:16] LABS: ALBUMIN 2.6 g/dL (3.4-5.0); CALCIUM 8.4 mg/dL (8.5-10.1); CREATININE 0.8 mg/dL (0.6-1.0); PHOSPHORUS 3.4 mg/dL (2.5-4.9)
[2018-07-04 10:00] VITALS: BP 144/62
--- NOTE | 2018-07-04 10:00 | NUR ---
ASSUMED PT CARE AT 0700. ASSESSMENT COMPLETED AND IS CHARTED. VSS. PT IS AWAKE, ALERT/ORIENTED X4. REPORTS SOME BACK PAIN. SHORT OF BREATH WITH EXERTION BUT IN NO DISRESS AT THIS TIME. O2 REMAINS AT 3L PER NC. WHEEZES NOTED UPON AUSCULTATION. SAT IS 95%. NO OTHER IMMEDIATE CONCERNS. WILL CONTINUE WITH CURRENT CARE.
--- NOTE | 2018-07-04 15:22 | NUR ---
SW reviewed chart and spoke with nursing and attending physician. Pt was [facility] to [facility] from and is progressing towards goals for discharge. Discharge home is anticipated in 1-2 days. SW updated intake at [facility]. Plan is for pt to d/c home with [facility] when medically stable. SW is following to assist as needed with discharge planning.
--- NOTE | 2018-07-04 16:21 | NUR ---
I have reviewed the documentation by BRANDON OLIVAS from 07/04/18 to 07/04/18 and I concur with it. MALA CABALLERO
--- NOTE | 2018-07-04 16:40 | NUR ---
PT PROGRESSING WELL THIS SHIFT. UP IN [place] WITH PHYSICAL THERAPY AND TOLERATED WELL. PT STILL WHEEZING. O2 REMAINS AT 3L PER NC. NO IMMEDIATE CONCERNS OR ISSUES AT THIS TIME. WILL CONTINUE WITH [facility].
[2018-07-04 20:05] VITALS: BP 145/61
--- NOTE | 2018-07-05 04:11 | NUR ---
Assumed pt care at 1900.Pt A/OX4,pleasant. VSS.C/o non-cardiac chest pain r/t coughing medicated with Hydrocodone as ordered with relief reported. Pt's lung sounds w/wheezes,WHEATLEY and pt on O2 @ 3L/NC. Deep breathing exercises encouraged as well as Aerobika device use and pt is able to produce thin brown phelgm.Pt has been sleeping on and off through the night. Pt reports lastnormal Bm was a week ago,prune juice and scheduled softeners given at HS,pt passing flatus at this time but no BM yet. Voiding in the BSC,with min assist of 1.Resting quietly at this time eyes closed with no distress noted. Fall precautions implemented will continue to monitor pt.
[2018-07-05 07:45] VITALS: BP 179/79
--- NOTE | 2018-07-05 10:59 | NUR ---
PATIENT CARE WAS ASSUMED AT 0715.PATIENT IS ALERT AND ORIENTED X4.PATIENT IS X1 ASSIST WITH WALKER, WILL CALL FOR ASSISTANCE, BEFORE GETTING UP.FALL PRECAUTIONS ARE IN PLACE.IV IS INTACT, AND SALINE LOCKED.PT HAS HAD DIARRHEA SEVERAL TIMES THIS MORNING DUE TO LAXATIVES GIVEN.PATIENT HAS NO COMPLAINS OF PAIN AT THIS TIME.CALL LIGHT, PHONE, AND PERSONAL BELONGINGS ARE WITHIN REACH.
--- NOTE | 2018-07-05 13:25 | NUR ---
THELMA reviewed chart and spoke with nursing and attending physician. Pulm consulted today to evaluate pt. THELMA discussed case with [facility] vocational rehabilitation specialist. [facility] is following for home health services. Will see if pt may qualify for [facility]. THELMA is following to assist as needed with discharge planning.
[2018-07-05 17:37] VITALS: BP 184/93
[2018-07-06 00:13] VITALS: BP 130/42
--- NOTE | 2018-07-06 06:18 | NUR ---
Assumed pt care at 1900.Pt A/OX4,up with assist of . C/o non cardiac pain with coughing,medicated per EMAR with relief reported.Pt had a CT of the chest at HS,results pending. Voiding without difficulties and did have a BM. Pt does has dyspnea on exertion,productive cough. On O2 @ 3L/NC.Did c/o right hip pain this am order obtained for Voltaren gel from [facility] and applied. Resting quietly with no distress noted at this time,call light placed within reach.
[2018-07-06 07:25] LABS: HEMATOCRIT 32.8 % (37.0-47.0); HEMOGLOBIN 10.2 gm/dL (12.0-15.0); MCH 26.9 pg (26.0-34.0); MCHC 31.2 g/dL (28.0-37.0); MCV 86.1 fL (80.0-100.0); RBC 3.81 mil/uL (4.20-5.00); RDW 16.6 % (10.5-14.5); WBC 17.9 thou/uL (4.0-11.0)
--- NOTE | 2018-07-06 07:28 | NUR ---
ASSUMED PATIENT AND CARES AT 0715, PATIENT INITIALLY SLEEP THEN WAKIN DURING REPORT, DENIES PAIN AND DISCOMFORT, FALL PRECAUTIONS AND LUE LIMB ALERT IN PLACE, PATIENT REQUESTED OFF-GOING NURSE TO CALL BREAKFAST ORDER IN FOR HER, RIGHT FOREARM SALINE LOCK INTACT, O2@2L/NC IN PLACE, WALKER AND BSC NEARBY, PERSONAL BELONGINGS AND CALL LIGHT IN REACH, WILL CONTINUE TO MONITOR
[2018-07-06 07:49] LABS: ALBUMIN 2.8 g/dL (3.4-5.0); CREATININE 0.9 mg/dL (0.6-1.0); MAGNESIUM 3.5 mg/dL (1.8-2.4); POTASSIUM 5.1 mmol/L (3.5-5.1); TOTAL BILIRUBIN 0.3 mg/dL (<0.1-1.0); TOTAL PROTEIN 6.3 g/dL (6.4-8.2)
[2018-07-06 08:20] VITALS: BP 163/78
[2018-07-06] MEDS ORDERED: VOLTAREN GEL 1100 G1 TOP (08:47)
[2018-07-06] MEDS ORDERED: SOLU-MEDRO125 MG/23 IV PUSH (08:48)
[2018-07-06] MEDS ORDERED: UNASYN 1.5 GM1.5 GM IV (08:49)
--- NOTE | 2018-07-06 10:02 | NUR ---
PATIENT SEEN BY PASTORA MULTANI NP WITH DR. COPELAND ON 07/05/18. PATIENT MEETS CRITERIA FOR ACUTE REHAB STAY AT THIS TIME. WILL CONTINUE TO FOLLOW AND REASSESS FOR APPROPRIATENESS ONCE DISCHARGE DATE IS KNOWN. BED ON 5N WILL BE AVAILABLE BY 07/08 IF NOT EARLIER. THANK YOU FOR THIS REFERRAL.
--- NOTE | 2018-07-06 13:41 | NUR ---
SW reviewed chart and spoke with nursing and attending physician. Pt has discharge orders. SW discussed case with vocational rehabilitation supervisor, who states they are able to accept pt, but do not have a bed available today. SW met with pt at bedside to discuss discharge plan. Pt states she wants to go to . However, pt stated that Dr. Mccollum had just evaluated her, and would like to talk to her family about a possible surgical procedure. Pt was tearful. SW explained that will continue to follow for admission to . SW updated vocational rehabilitation supervisor and attending physician. SW is following to assist as needed with discharge planning.
--- NOTE | 2018-07-06 13:59 | NUR ---
Nutrition: pt admitted with SOA, COPD exacerbation. Seen for LOS. Reports normal appetite on regular diet. BG 120-294 with no hx of DM but on solumedrol, insulin. Will add carb controlled to diet order. No recent significant weight changes. Plan transfer to rehab within 2 days. Low risk.
--- NOTE | 2018-07-06 18:34 | NUR ---
I AGREE WITH NURSING ASSESSMENT DONE BY MARTHA/BO.
[2018-07-06 20:57] VITALS: BP 140/56
--- NOTE | 2018-07-07 04:25 | NUR ---
Assumed pt care at 1900,A/OX4.VSS.Pt's up with SBA/GB to BSC. Voiding without any difficulties,had a small BM. Given prune juice at HS per request,BS active and pt passing flatus.Pt's breathing improved with less wheezing noted. On O2@2L/NC 95%,does has WHEATLEY.Encouraged to take deep breathes via nose and helpful. Pt just did c/o right hip pain,Voltaren gel applied.Will monitor for effectiveness. Call light and personal items within reach.
[2018-07-07 06:46] LABS: HEMATOCRIT 30.4 % (37.0-47.0); HEMOGLOBIN 9.5 gm/dL (12.0-15.0); MCHC 31.2 g/dL (28.0-37.0); MCV 86.6 fL (80.0-100.0); RBC 3.51 mil/uL (4.20-5.00); RDW 16.3 % (10.5-14.5); WBC 17.9 thou/uL (4.0-11.0)
[2018-07-07 07:03] LABS: CALCIUM 8.1 mg/dL (8.5-10.1); CREATININE 0.7 mg/dL (0.6-1.0); POTASSIUM 5.1 mmol/L (3.5-5.1)
[2018-07-07 07:25] VITALS: BP 154/77
--- NOTE | 2018-07-07 07:31 | NUR ---
ASSUMED PATIENT AND CARES AT 0715, PATIENT WOKE SITTING UP IN BED, PATIENT ASSISTED UP TO BSC AT THIS TIME, SBA WITH WALKER, A&OX4, RATES CHRONIC ARTHRITIC BACK AND PAIN 10/05, REMAINS ON PAIN MEDICATION REGIMEN, O2@2L/NC, PRODUCTIVE COUGH WITH YELLOW BROWN SPUTUM NOTED, RIGHT HAND IV INTACT AND PATENT WITH ABT THERAPY FINISHING UP INFUSION, PERSONAL BELONGINGS AND CALL LIGHT IN REACH, WILL CONTINUE TO MONITOR
[2018-07-07 07:54] VITALS: BP 154/77
--- NOTE | 2018-07-07 10:31 | NUR ---
THELMA reviewed chart and spoke with nursing and attending physician. Pt is not ready for discharge today. Pt with lunch mass/left breast mass. Pt has hx of breast cancer. Records from [facility] requested. Pt will need a bronchoscopy when more stable. SW updated [facility] liaison. THELMA is following to assist as needed with discharge planning.
--- NOTE | 2018-07-07 16:24 | NUR ---
PATIENT TRANSFERRED TO [facility] FROM SICU 227, PATIENT AND AWARE, MEDICATIONS GIVEN UP TO TRANSFER TIME, ALL BELONGINGS PACKED AND SENT WITH PATIENT, RIGHT HAND SALINE LOCK INTACT AND PATENT, REPORT CALLED TO RECEIVING NURSE
--- NOTE | 2018-07-07 19:35 | NUR ---
PATIENT ARRIVED TO FLOOR FROM [facility] AT 1725. ALERT AND ORIENTED X 4. O2 2L/NC INTACT. SITTING UP IN RECLINER SINCE ARRIVAL. DENIED PAIN. INSTRUCTED ON USE OF CALL LIGHT AND BED CONTROLS. ACCUCHECK 98. FALL PRECAUTIONS IN PLACE.
[2018-07-07 20:37] VITALS: BP 159/60
[2018-07-08 03:39] VITALS: BP 183/70
--- NOTE | 2018-07-08 04:29 | NUR ---
Pt. rested quietly during the night when checked on during frequent rounds. She did c/o bilateral knee pain and po scheduled pain med given (see emar) with some relief noted. Up to the bathroom with assistance of one. Bed alarm is on.
[2018-07-08 07:50] VITALS: BP 140/64
[2018-07-08 09:39] VITALS: BP 175/83
--- NOTE | 2018-07-08 12:57 | NUR ---
PATIENT SEEN BY ASAF MULTANI NP WITH DR. COPELAND. PATIENT IS NOT READY FOR REHAB THIS DATE. PATIENT NOT ANTICIPATED TO BE MEDICALLY STABLE FOR REHAB ADMISSION UNTIL 07/11/18. WILL CONTINUE TO FOLLOW.
[2018-07-08 14:12] VITALS: BP 119/52
--- NOTE | 2018-07-08 14:16 | NUR ---
CARE TEAM INDICATED THAT PT WILL LIKELY BE HERE OVER THE WEEKEND. [facility] IS FOLLOWING FOR POSSIBLE ADMISSION. CM TO FOLLOW INDICATED WITH DC PLANNING.
--- NOTE | 2018-07-08 15:39 | NUR ---
ASSUMED CARE 0700. ALERT X4, PAIN MANAGED WITH MEDS, LEFT BREAST US AND MAMMOGRAM TODAY WITH A BIOPSY OBTAINED, RESULTS PENDING. WAIT[facility], ABLE TO MAKE NEEDS KNOWN. FALL PRECAUTIONS IN PLACE. CALL LIGHT IN REACH
[2018-07-08 19:13] VITALS: BP 154/59
--- NOTE | 2018-07-09 04:37 | NUR ---
Pt. rested quietly at intervals during the night when checked on during frequent rounds. She c/o knee pain and scheduled pain med given as ordered (see emar) with some relief noted. Up to the bathroom with assistance of one. She rested in the recliner chair all night per her request. Chair alarm is on.
[2018-07-09 06:23] VITALS: BP 131/61
[2018-07-09 08:00] VITALS: BP 150/60
--- NOTE | 2018-07-09 14:46 | NUR ---
ASSUMED CARE 0700. VSS, PAIN MANAGED WITH MEDICATIONS, MOVED ROOM CLOSER TO NURSES STATION FOR BETTER OVERSIGHT CARE. INCONITNENT OF BLADDER. FLEET ENAMA GIVEN AND EFFECTIVE. LUNGS COARSE & WHEEZING CONTINUES 2L NC AND BREATHING TREATMENTS. EDEMA LE ENCOURAGED PT TO ELEVATE LEGS. FULL FALL PRECATIONS IN PLACE. CALLS APPROPRIATELY.
[2018-07-09 16:44] VITALS: BP 118/64
[2018-07-09 19:58] VITALS: BP 137/40
--- NOTE | 2018-07-10 03:13 | NUR ---
PATIENT IS AOX4 MAKES NEEDS KNOWN. PATIENT DENIED PAIN OR DISCOMFORT. PATIENT HAS SHORTNESS OF AIR WITH ACTIVITY. PATIENT IS ON 2L OF OXYGEN. PATIENT USES A BEDSIDE COMMODE. PATIENT NEEDS MINIMUM ASSISTANCE WITH ADL, BED MOBILITY, TRANSFER AND TOILETING. PATIENT IN BED ASLEEP AT THIS TIME BREATHING REGULAR AND UNLABOURES.
[2018-07-10 05:31] VITALS: BP 141/46
[2018-07-10 07:25] VITALS: BP 140/51
[2018-07-10 16:31] VITALS: BP 146/49
[2018-07-10 16:32] VITALS: BP 185/69
--- NOTE | 2018-07-10 18:28 | NUR ---
Assumed pt care this am, pt stable through out the shift. NO issues or complaints verbalized by the pt. Pt spent most of the day on her recliner. CARTER haji
[2018-07-10 19:10] VITALS: BP 125/49
[2018-07-11 03:20] VITALS: BP 127/42
--- NOTE | 2018-07-11 07:37 | NUR ---
Assumed care at 1845. Pt resting in bed. AOX4. VSS. No skin issues. Pt resting in bed. Still awaiting transfer to . No identified needs at the moment. Will continue to monitor.
[2018-07-11 08:00] VITALS: BP 135/53
[2018-07-11 15:00] VITALS: BP 135/51
--- NOTE | 2018-07-11 15:50 | NUR ---
CM MET WITH PT, TIEN ROBLES AND PT'S SPOUSE AT BEDSIDE THIS DAY. CM INDICATED THAT CARE TEAM WAS RECOMMENDING SHORT TERM POST ACUTE CARE STAY ON 5N UPON DC TODAY. PT AND FAMILY WERE NOW RECEPTIVE TO GOING TO [facility]. PT IS TO DISHCARGE TO ROOM 509 THIS EVENING. NO OTHER CM INTERVENTION INDICATED AT THIS TIME. CASE CLOSED.
--- NOTE | 2018-07-15 18:58 | HC ---
[facility] [place] [address] CONSULTATION Name: AMARILYS FAITH Room #: 453-P [facility] IN M.R.#: [id number] Admission: 06/29/18 ������������������ Attend Phys: Shaggy Cerna MD Discharge: 07/11/18 ������������������ Date of : 39 Report #: [id number] THIS REPORT FOR: //name// CC: Shaggy Alaniz DATE OF SERVICE: 07/05/2018 REFERRING PHYSICIAN: Shaggy Cerna MD. REASON FOR REFERRAL: Persistent dyspnea, bronchospasm. HISTORY OF PRESENT ILLNESS: The patient is a 78-year-old white female who was admitted on 06/29/2018 for pneumonia. With persistent dyspnea, symptoms, pulmonary consultation was requested. Chest x-ray on admission revealed consolidation involving the right upper lobe. She was placed on broad-spectrum antibiotics. Despite medications along with corticosteroids and bronchodilators, the patient continues to have persistent wheezing and bronchospasm. She states that she is somewhat improved, though not back to baseline. Other than that, she denies any chest pain. She denies any recent weight loss, hemoptysis. Denies any recent night sweats or chills. The patient is known to this physician from a previous hospitalization in 2017. PAST MEDICAL HISTORY: Notable for COPD, severity unknown, she normally gets a care at [facility]; gastroesophageal reflux disease; past history of breast cancer, status post bilateral lumpectomy; peptic ulcer disease; history of anemia; peripheral neuropathy; history of falls; bilateral external iliac stent placement; left carotid endarterectomy; chronic pain and sciatica; hypercholesterolemia. PAST SURGICAL HISTORY: As mentioned above including bilateral hip replacement, left shoulder surgery, oral surgery for maxillary extractions. ALLERGIES: TO ADHESIVE TAPE, CEPHALOSPORINS, AMOXICILLIN, CODEINE, REACTION UNSPECIFIED. MEDICATIONS: List reviewed in the MAR. Her medications include Unasyn and Zithromax. FAMILY HISTORY: Notable for colon cancer in a maternal grandmother. SOCIAL HISTORY: The patient has smoked for many years, but quit years ago. She [facility] [address] [place] [address] CONSULTATION Name: AMARILYS FAITH Room #: 453-P [facility] IN .R.#: [id number] Admission: 06/29/18 ������������������ Attend Phys: Shaggy Cerna MD Discharge: 07/11/18 ������������������ Date of : 39 Report #: [id number] drinks socially. REVIEW OF SYSTEMS: As mentioned above, otherwise 10-point system review negative. PHYSICAL EXAMINATION: GENERAL: She is awake, alert, appears moderately dyspneic. VITAL SIGNS: Temperature 98.6 degrees Fahrenheit, pulse is 85, respiratory rate is 18, blood pressure is 145/61 mmHg and saturation 96%. HEENT: Normocephalic, atraumatic. NECK: Supple, without lymphadenopathy or thyromegaly. CHEST: Breath sounds are fair with mild expiratory wheezes bilaterally. Few scattered crackles in the right lung field. CARDIOVASCULAR: Normal S1, S2. There is no murmur or gallop. There is no JVD. There is no carotid bruit. Pulses are 2+/4+ bilaterally. ABDOMEN: Soft, nontender, no organomegaly or masses felt. GENITOURINARY: Deferred. RECTAL: Deferred. EXTREMITIES: No cyanosis or clubbing, 1+ edema bilaterally. NEUROLOGIC: Grossly intact. LABORATORY DATA: Chest x-ray shows consolidation of the right upper lobe with some partial clearing on today's x-ray. Electrolytes are normal. WBC is 17,900, hemoglobin 10.2, platelets are mildly elevated. Albumin 2.8. IMPRESSION: 1. Right upper lobe consolidation, presumed pneumonia, slow to improve. 2. Chronic obstructive pulmonary disease, severity unknown, exacerbation with persistent dyspnea, bronchospasm. 3. Hypertension. 4. History of anemia, chronic. RECOMMENDATION: There appears to be some improvement in the right upper lobe infiltrates; however, the patient remains symptomatic with dyspnea and bronchospasm. She has been on Unasyn and Zithromax. It is unclear of the suspicion for the patient may have aspirated with the use of this selection of antibiotics. Given slow improvement, history of tobacco use, I think it is reasonable to proceed with CT chest to further evaluate the right upper lobe. Further recommendation pending above. DVT and GI prophylaxis recommended. Continue antibiotics. We will complete approximately 7-10 day course, continue steroids and taper slowly along with bronchodilators. [address] [address] CONSULTATION Name: AMARILYS FAITH Room #: 453-P [facility] IN M.R.#: [id number] Admission: 06/29/18 ������������������ Attend Phys: Shaggy Cerna MD Discharge: 07/11/18 ������������������ Date of : 39 Report #: [id number] Thank you for this consultation. ��������������������������������������������� <ELECTRONICALLY SIGNED> ���������������������������������������� By: Aj Pavon MD ��������������������������������������������� 07/15/18 1858 [id number] Aj Pavon MD /nt
== END 2018-07-11 18:45 | DRG 871 ==
LOC: ER 11:17 → EROBS 13:44 → 4W 13:44 → ENTRNSPT 06-30 14:27 → EDTRNSPTSTS 07-01 12:05 → SICU 07-03 14:58 → ENTRNSPT 07-07 16:28 → 4W 07-07 17:30 → EDTRNSPTSTS 07-08 13:47 → CMPTRNSPT 07-08 14:03 → 4W 07-09 08:37
PROVIDERS: Emergency Medicine; Hospitalist; Internal Medicine Pulmonary Disease; Nurse Practitioner Family; ADMIT Hospitalist
PROC: BH02ZZZ Plain Radiography of Bilateral Breasts (ICD-10-PCS; principal; 2018-07-08)
DX: A41.9 Sepsis, unspecified organism (principal); J18.1 Lobar pneumonia, unspecified organism; J96.91 Respiratory failure, unspecified with hypoxia; J44.1 Chronic obstructive pulmonary disease with (acute) exacerbation; J44.0 Chronic obstructive pulmonary disease with (acute) lower respiratory infection; I10 Essential (primary) hypertension; E78.00 Pure hypercholesterolemia, unspecified; Z96.643 Presence of artificial hip joint, bilateral; Z96.612 Presence of left artificial shoulder joint; I73.9 Peripheral vascular disease, unspecified; G89.29 Other chronic pain; M54.9 Dorsalgia, unspecified; G62.9 Polyneuropathy, unspecified; E78.5 Hyperlipidemia, unspecified; M54.40 Lumbago with sciatica, unspecified side; J30.2 Other seasonal allergic rhinitis; D63.8 Anemia in other chronic diseases classified elsewhere; M17.0 Bilateral primary osteoarthritis of knee; R91.8 Other nonspecific abnormal finding of lung field; N63.0 Unspecified lump in unspecified breast; G47.9 Sleep disorder, unspecified; K21.9 Gastro-esophageal reflux disease without esophagitis; Z90.49 Acquired absence of other specified parts of digestive tract; Z85.3 Personal history of malignant neoplasm of breast; Z98.42 Cataract extraction status, left eye; Z98.41 Cataract extraction status, right eye; Z95.820 Peripheral vascular angioplasty status with implants and grafts; Z88.6 Allergy status to analgesic agent; Z88.1 Allergy status to other antibiotic agents; Z88.8 Allergy status to other drugs, medicaments and biological substances; Z87.891 Personal history of nicotine dependence; Z87.11 Personal history of peptic ulcer disease; Z80.0 Family history of malignant neoplasm of digestive organs; Z79.82 Long term (current) use of aspirin; Z79.899 Other long term (current) drug therapy
CPT/HCPCS: 10040; 10045; 15002

== ENCOUNTER 2018-07-11 15:53 | Inpatient (IN) | payer OTHER ==
[~2018-07-11] VITALS: Ht 160 cm; Wt 91.6 kg
--- NOTE | ~2018-07-11 | HC ---
[facility] [place] [address] CONSULTATION Name: AMARILYS FAITH Room #: 509-P ADM IN M.R.#: [id number] Admission: 07/11/18 ������������������ Attend Phys: Farhad Burt MD Discharge: ������������������ Date of : 38 Report #: [id number] THIS REPORT FOR: //name// CC: Farhad Burt HISTORY OF PRESENT ILLNESS: This patient is seen in consultation regarding left breast abnormality found on physical examination when she was admitted through the Emergency Room. She has a known past medical history of bilateral breast cancer. Her scans also showed abnormal chest x-ray with CT showing a large soft tissue, right upper lobe mass with mediastinal and subcarinal adenopathy. Her previous cancer history is positive for left-sided stage I cancer treated with conservation surgery in 1994 at [facility] followed by radiation therapy and tamoxifen for a 1.1 cm ER positive tumor. In 1997, she had a lobular, ER/MT receptor HER-2 positive, T2 2 cm N0 right-sided breast cancer treated with Adriamycin, Cytoxan with 4 cycles and subsequent Arimidex. Arimidex was discontinued by Dr. Zaidi in 2004. 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 Upon Dr. Zaidi's fpc from [facility] in 02/2008, she saw Dr. Fierro on one occasion in 12/2008. It was recommended that she undergo genetic screening, which found no record of that being performed. She was subsequently lost to follow up. Her remaining medical history is significant for chronic obstructive lung disease, medically managed, hypertension and elevated cholesterol, reflux, anemia, previous bleeding ulcer, prior appendectomy, prior right total hip replacement and left total hip replacement surgeries. She had left rotator cuff operation and previous left carotid endarterectomy. She had bilateral iliac stenting. ALLERGIES: ADHESIVE CEPHALEXIN, CODEINE, AND LEVOFLOXACIN. MEDICATIONS: As in the MFR. SOCIAL HISTORY: Positive for being a reformed smoker. FAMILY HISTORY: Positive for mother having uterine cancer in her 70s. REVIEW OF SYSTEMS: Negative for any new areas of pain or new suspicious palpable masses. She states the left breast mass has been present for some time and she has undergone yearly mammographies through [facility] which were nondiagnostic of abnormalities. PHYSICAL EXAMINATION: GENERAL: Shows her to be alert. HEENT: Shows binasal cannula. [facility] [address] [place] [address] CONSULTATION Name: AMARILYS FAITH Room #: 509-P ADM IN .R.#: [id number] Admission: 07/11/18 ������������������ Attend Phys: Farhad Burt MD Discharge: ������������������ Date of : 38 Report #: [id number] NECK: Supple. CHEST: Showed diminished breath sounds. CARDIOVASCULAR: S1, S2. BREASTS: Show bilateral surgery. She has indurated area in the left lower quadrant of the breast, this is not reddened or hot. Right breast showed no suspicious findings. LYMPHATICS: No suspicious supraclavicular or axillary lymphadenopathy. EXTREMITIES: No clubbing, cyanosis or edema. NEUROLOGIC: No focal localizing signs. PSYCHIATRIC: Not agitated or confused. ASSESSMENT: Positive personal history of previous bilateral breast cancer and cancer of the vulva and a reformed smoker. PLAN: As discussed with hospitalist, nurse practitioner earlier. I would recommend a biopsy of lung mass and could submit also for ER/MT and HER-2 with possibly representing metastatic breast cancer, I would be more concerned that this is her fourth asynchronous primary malignancy and may represent lung primary tumor in a reformed smoker. She has been seen by Pulmonary and appears that bronchoscopy will be performed in the future as an outpatient. Thanks for allowing us to see her with you in consultation and being asked to participate in her care. ��������������������������������������������� ���������������������������������������� By: ��������������������������������������������� [id number] Megan Doherty MD /nt
--- NOTE | ~2018-07-11 | HC ---
[facility] [place] [address] CONSULTATION Name: AMARILYS FAITH Room #: 509-P ADM IN M.R.#: [id number] Admission: 07/11/18 ������������������ Attend Phys: Farhad Burt MD Discharge: ������������������ Date of : 39 Report #: [id number] THIS REPORT FOR: //name// CC: Farhad Burt DATE OF SERVICE: 07/16/2018 NEUROBEHAVIORAL STATUS EXAMINATION ATTENDING PHYSICIAN: Farhad Burt MD RESIN FILTERER: John May, PhD CLINICAL PRESENTATION: The patient is a 78-year-old female admitted to [facility] for comprehensive inpatient rehabilitation program. She was originally admitted to [facility] on 06/29/2018 with an exacerbation of COPD and community-acquired pneumonia. The patient has a past medical history of hypertension, COPD, elevated cholesterol, bilateral breast cancer, bleeding ulcer, anemia, falls, peripheral vascular disease, GI bleed and sciatica. The diagnosis on the rehab unit also includes an acute exacerbation of COPD. Assessment included a community-acquired pneumonia, hypertension, hyperlipidemia, history of anemia, history of ulcer disease, chronic low back pain, degenerative arthritis in the knees and peripheral vascular disease with history of stents. A complete description of her medical condition, history and medications can be found in her medical record. Neuropsychological consultation was requested to provide assistance in the assessment of cognitive and emotional status and to provide recommendations and services. Prior to this most recent admission she was living independently in her home with her . She reports having had frequent hospitalizations recently as a result of falls. COPD is a primary problem at this time. Her most recent hospitalization was a result of her identifying severe respiratory distress and arranging for her hospitalization. She describes having anxiety in regard to her breathing and well-being. The patient has 2 children. One child lives in [place] and is a professor at [employer]. 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 She is a college graduate. Situational stress includes a recent hospitalization of her sister. TECHNIQUES UTILIZED: Clinical interview, review of medical records, staff consultation and behavioral observation, mini mental status exam 2 standard version, clock drawing and single word category fluency. EXAMINATION FINDINGS: The patient was alert and cooperative with the assessment. There was no report of auditory or visual hallucinations. She does [facility] [address] [place] [address] CONSULTATION Name: AMARILYS FAITH Room #: 509-P [facility] IN [facility].#: [id number] Admission: 07/11/18 ������������������ Attend Phys: Farhad Burt MD Discharge: ������������������ Date of : 39 Report #: [id number] not present with a thought disorder. There is no evidence of aphasia. Her thoughts are logical and goal oriented. Her mood appears anxious. She describes symptoms to include sleep disturbance, appetite, depression and anxiety. She does not report difficulty with memory or word finding. Her performance on the MMSE 2 brief version is within normal limits with a raw score of 15/16. She was 3/3 for initial registration, 5/5 for orientation to time and place. She was 2/3 for immediate recall of 3 items after a brief time delay and distraction. Performance on the standard version of the MMSE 2 was 25/30, which is a T score of 39 and percentile rank of 14, which is in the low average range. Difficulty with sustained attention and concentration was noted. She was 2/5 for serial 7's. The patient also had difficulty with copying a simple geometric design. Repetition was needed for clock drawing. Impairment is suggested in visual spatial construction and sustained attention and concentration. Single letter fluency was in the low average range with a T score of 37 and percentile rank of 12. The patient is presenting with variability in mood including anxiety and depression in regard to her medical condition. Mild deficits are also suggested in aspects of cognitive functioning, specifically thought organization and verbal fluency and visual spatial construction along with attention and concentration. 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 Adjustment disorder with anxiety and depressed mood. RECOMMENDATIONS: Consider the use of antidepressant medication. She also reports a great deal of frustration with her mouth sores and may benefit from dental consultation to assist in selection of medication to improve or to resolve mouth irritations. The patient will likely benefit from continued speech therapy to assist with compensatory strategies and cognitive stimulation to address issues of concentration, visual spatial coordination and variability in memory. Verbal praise and complements about participation in therapies along with assistance in identifying positive qualities in her overall recovery will also help the overall adjustment. Thank you very much for allowing me to provide the consultation on this patient. ��������������������������������������������� ���������������������������������������� By: ��������������������������������������������� [id number] [id number] John May, PhD /nt
--- NOTE | ~2018-07-11 | D ---
[facility] [place] [address] DISCHARGE SUMMARY Name: AMARILYS FAITH Room #: 509-P [facility] IN M.R.#: [id number] Admission: 07/11/18 ������������������ Attend Phys: Farhad Burt MD Discharge: 07/20/18 ������������������ Date of : 39 Report #: [id number] THIS REPORT FOR: //name// CC: Farhad Burt DATE OF SERVICE: 07/20/2018 SUBJECTIVE: The patient is a 78-year-old white female who was admitted for acute exacerbation of COPD. She was noted to have community-acquired pneumonia, hypertension, and hyperlipidemia. The patient had a breast mass and underwent biopsy of this breast mass while she was on rehabilitation. She was working in her therapy program and making gradual progress. She was followed clinically regarding consolidation of her right upper lobe and Pulmonary was following along. She was working on sit to stand transfers with min assist, was ambulating up to 40 feet x 2 with a 4-leg walker. On 07/19/2018, her chest x-ray was looking worse involving the right upper lobe infiltrate with increasing consolidation. She was seen by Pulmonary Medicine. She ended up having increased shortness of breath earlier this morning and was transferred off the rehab [facility] with acute hypoxemic hypercapnic respiratory failure. She was placed on BiPAP and transferred to the ICU. DISCHARGE ACTIVITY: Would be as per the accepting service. DISCHARGE MEDICATIONS: As per the accepting ____ service. DISCHARGE DIAGNOSES: Would include 1. Acute exacerbation of chronic obstructive pulmonary disease. 2. Acute hypercapnic/hypoxemic respiratory failure. 3. Right upper lobe lung mass/consolidation. 4. Breast mass, status post biopsy. 5. Community-acquired pneumonia. 6. Hypertension. 7. Hyperlipidemia. 8. Anemia. 9. History of ulcer disease. 10. Chronic low back pain. 11. Degenerative joint disease of her knees. ��������������������������������������������� ���������������������������������������� By: ��������������������������������������������� [id number] [id number] Farhad Burt MD /nt
[~2018-07-11 15:53] MED LIST changes: +ADVAIR 250-501 EACH INH; +ADVAIR HFA 230M12 GM INH; +CLARITIN-D 121 EAC1 PO; +FISH OIL 1,001000 M2 PO; +LASIX 20 MG TAB20 MG PO; +LISINOPRIL10 MG PO; +NORCO 5-325 TA1 EACH PO; +SENNA8.6 MG PO; +SOLU-MEDRO125 MG/23 IV PUSH; +UNASYN 1.5 GM1.5 GM IV; +VENTOLIN HFA INH8 GM INH; +VOLTAREN GEL 1100 G1 TOP
[2018-07-11 19:45] VITALS: BP 132/58
--- NOTE | 2018-07-12 03:37 | NUR ---
ADMITTED TO [facility] WITH WEAKNESS DUE TO ASTHMA. SIGNED CONSENTS AND NOTED THAT THEY ARE SO SIMILAR TO THE ONES SHE SIGNED ON ACUTE. PATIENT IS SLIGHTLY FORGETFUL BUT IS USING CALL LIGHT APPROPRIATELY. SLEEPING IN CHAIR, PIVOT TRANSFERS TO BSC FROM CHAIR WITH MIN ASSIST, VOIDS WELL AND IS SLEEPING IN CHAIR
[2018-07-12 06:02] LABS: HEMATOCRIT 24.7 % (37.0-47.0); HEMOGLOBIN 7.8 gm/dL (12.0-15.0); MCH 27.8 pg (26.0-34.0); MCHC 31.8 g/dL (28.0-37.0); MCV 87.3 fL (80.0-100.0); RBC 2.82 mil/uL (4.20-5.00); RDW 17.5 % (10.5-14.5); WBC 21.1 thou/uL (4.0-11.0)
[2018-07-12 06:24] LABS: CALCIUM 7.3 mg/dL (8.5-10.1); CREATININE 1.4 mg/dL (0.6-1.0); POTASSIUM 4.5 mmol/L (3.5-5.1)
--- NOTE | 2018-07-12 08:11 | NUR ---
chart review. cm visited with pt at bedside, she was up sitting on edge of bed with therapy getting ready to walk with physical therapy. noted pt on o2 per nc. pt a & o x 3, able to make her needs know with some forgetfulness. pleasant and enjoys visiting. noted her having to stop and rest in-between her sentences. intro to cm, transition of care, home health and team meeting. per pt and chart " live home with , niece helps and is supportive. [facility] in past. few steps to enter home with hand rail. 10 stairs with rail to basement for laundry. have home care who come a week to help with laundry. have walker to use, grab bars, take breathing treatment at home. help me dress upper body, shoulder don't raise. use pill box for medication. groceries at delivered to house or niece runs errand sometime. havent driven in while, since havent felt well."/aries and chart.
[2018-07-12 08:50] VITALS: BP 153/58
--- NOTE | 2018-07-12 10:05 | NUR ---
ASSUMED CARE AT 0700. PATIENT IS ALERT AND ORIENTED X4, BUT CAN BE FORGETFUL AT TIMES. PATIENT ROSS'S, SEGMENT PRODUCER ARE EQUAL. LUNGS ARE CLEAR AND DEMINISHED. PATIENT ON 02 AT 1 1/2 L OF 02 PER N/C. PATIENT IS UP WITH ASSIST OF 1 TO BSC. TO VOID [place] COLORED URINE. PATIENT HAS S.L. IN HER RIGHT HAND. FLUSHES WELL. HGB 7.8 , N.P. NOTIIFED. GI TO FOLLOW. UP TO THE DINING ROOM FOR MEALS. FALL AND SAFETY PROTOCOLS IN PLACE. C/O PAIN IN HER LEFT KNEE. HAS +1 EDEMA IN HER KNEES. CONTINUES TO PROGRESS SLOWLY TOWARDS D/C GOALS. WILL CONTINUE TO MONITER.
[2018-07-12 11:36] LABS: % SATURATION 23 % (20-39); IRON 46 ug/dL (50-170); TIBC 204 ug/dL (250-450)
[2018-07-12 12:03] LABS: FOLIC ACID 13.4 ng/mL (8.6-58.9)
--- NOTE | 2018-07-12 12:20 | NUR ---
team meeting, reccomendation: re team
--- NOTE | 2018-07-12 13:33 | NUR ---
Nutrition: pt admitted with AE COPD. Seen due to rehab admission orders-no reason stated. Good appetite. BG 145-309. No hx of DM but on solumedrol, BG likely aggravated due to steroids. Also on lasix, SSI. Will add carb controlled to diet order-discussed with pt. Low nutrition risk.
--- NOTE | 2018-07-12 18:32 | NUR ---
DR. OCONNOR HERE TO SEE PATIENT. ORDERS CHANGED. IV SOLUMEDROL DC'D AND PATIENT WILL START ON PREDNISONE IN THE A.M. DR. OCONNOR WAS CALLED AWAY BEFORE SEEING THE PATIENT AND WILL COME BACK LATER TODAY TO SEE PATIENT. HE WILL DECIDE WHICH ABT TO CHANGE PATIENT TO PO AND D/C THE IV ABT AT THAT TIME. WILL CONTINUE TO MONITER.
[2018-07-12 19:35] VITALS: BP 121/49
--- NOTE | 2018-07-13 04:13 | NUR ---
PT VERY RESTLESS, SLEEP VERY INTERRUPTED BY HAVING HIP PAIN, HYDROCODONE AND VOLTAREN CREAM APPLIED. TRANSFERRING WITH X1 ASSIST TO THE COMMODE, ON 2 L PER NC OXYGEN, BREATHING HEAVY WITH TRANSFER, ORAL HYDRATION OFFERED WHILE AWAKE, CONTINUE TO REFUSE SCDS, SKIN INTACT DESPITE EDEMA BLE, REMAINS ALERT/ORIENTED, PT VERBALIZING DESIRE TO HAVE A PASS ON Wednesday SO SHE CAN GO HOME AND CELEBRATE WITH FAMILY, WILL PASS THIS ON, HOURLY ROUNDING, MONITORED.
[2018-07-13 08:15] VITALS: BP 148/51
[2018-07-13 09:45] LABS: HEMATOCRIT 27.1 % (37.0-47.0); HEMOGLOBIN 8.5 gm/dL (12.0-15.0)
--- NOTE | 2018-07-13 11:06 | NUR ---
ASSUMED CARE AT 0700. PATIIENT IS ALERT AND ORIENTED X4. PATIENT ROSS'S, LEARNING TECHNOLOGIES SPECIALIST ARE EQUAL. LUNGS ARE CLEAR AND DEMINISHED. PATIENT CHANGED TO PO ABT AND PO . PREDNISONE. PATIENT REMAINS ON RESPIRATORY TX. 02 AT 2L PER NIGHT NURSE R/T PATIENT DESAT LAST NIGHT. ABD IS SOFT WITH BSX4. OUT TO THE DINING ROOM FOR MEALS. FALL AND SAFETY PROTOCOLS IN PLACE. DENIES ANY PAIN. CONTINUES TO PROGRESS TOWARDS D/C GOALS. WILL CONTINUE TO MONITER. PATIENT HAS S.L. IN HER RIGHT HAND. SITE WITHOUT REDNESS OR EDEMA. FAMILY HERE TO VISIT.
--- NOTE | 2018-07-13 14:49 | NUR ---
Patient participated in community reintegration on 07/13/18 with Physical Therapy. Refer to documentation by PT.
--- NOTE | 2018-07-13 23:29 | NUR ---
PT ASSESSMENT COMPLETED AND VSS. MEDS GIVEN ORDERED AND WELL TOLERATED. FALL PRECAUTIONS IN PLACE. UP TO THE BATHROOM WITH ASST/GAIT/WALKER. STEADY. VOIDING MODERATE AMOUNT OF YELLOW URINE. PT DOES NOT LIKE TO SLEEP IN THE BED AND IS SLEEPING IN THE RECLINER. WILL CONTINUE TO MONITOR FREQUENTLY. SAT WNL ON NC. RT TREATMENTS WORKING WELL.
[2018-07-14 04:56] VITALS: BP 135/53
[2018-07-14 05:32] LABS: HEMATOCRIT 26.8 % (37.0-47.0); HEMOGLOBIN 8.3 gm/dL (12.0-15.0); MCH 27.4 pg (26.0-34.0); MCV 88.5 fL (80.0-100.0); PLATELET COUNT 362 thou/uL (150-400); RBC 3.03 mil/uL (4.20-5.00); RDW 17.8 % (10.5-14.5); WBC 23.3 thou/uL (4.0-11.0)
[2018-07-14 05:37] LABS: CALCIUM 8.4 mg/dL (8.5-10.1); MAGNESIUM 2.5 mg/dL (1.8-2.4); POTASSIUM 4.6 mmol/L (3.5-5.1)
[2018-07-14 06:45] LABS: ABSOLUTE NEUTROPHILS 19.3 thou/uL (1.4-8.2); NUCLEATED RBCS 1 /100WBC
[2018-07-14 06:46] LABS: ANISOCYTOSIS 2+; LARGE PLATELETS FEW; PLATELET ESTIMATE NORMAL; POLYCHROMASIA 1+
[2018-07-14 07:37] VITALS: BP 111/46
--- NOTE | 2018-07-14 12:20 | NUR ---
passed on to cm that pt has been ok for 4h pass on easter, family will need to have training on oxygen prior to 4h pass only on easter.
--- NOTE | 2018-07-14 17:59 | NUR ---
ASSUMED CARE OF PATIENT AT APPROXIMATELY 0720. PATIENT IS A&OX4 AND VITAL SIGNS ARE STABLE. PATIENT TRANSFERS WTIH 1 PERSON ASSISTANCE USING GAIT BELT AND WALKER. PATIENT REPORTED PAIN THIS MORNING AND WAS ADMINISTERED PAIN MEDICAITON PER ORDERS PRIOR TO THERAPY. PATIENT HAS INSPIRATORY AND EXPIRATORY WHEEZES IN ALL LOBES OF THE LUNGS BILATERALLY. CHEST X-RAY WAS ORDERED AND PATIENT HAD X-RAY THIS AFTERNOON AT APPROXIMATELY 1600. PATIENT USES 2 LITERS OF OXYGEN VIA NASAL CANULA. FALL PRECAUTIONS ARE IN PLACE AND NURSING WILL CONTINUE TO MONITOR THE PATIENT.
[2018-07-14 20:33] VITALS: BP 140/49
--- NOTE | 2018-07-15 00:25 | NUR ---
PT ASSESSMENT COMPLETED AND VSS. MEDS GIVEN ORDERED AND WELL TOLERATED. FALL PRECAUTIONS IN PLACE. UP TO THE BATHROOM WITH ASST/GAIT/WALKER. STEADY. VOIDING WELL. SAT WNL ON 2.5 L NC. RT TREATMENTS CONTINUE. SLEEPING. WILL CONTINUE TO MONITOR FREQUENTLY.
[2018-07-15 09:05] VITALS: BP 140/55
--- NOTE | 2018-07-15 09:58 | NUR ---
I have reviewed the documentation by BRANDON OLIVAS from 07/15/18 to 07/15/18 and I concur with it. MALA CABALLERO
--- NOTE | 2018-07-15 16:32 | NUR ---
I have reviewed the documentation by BRANDON OLIVAS from 07/15/18 to 07/15/18 and I concur with it. MALA CABALLERO
--- NOTE | 2018-07-15 19:39 | NUR ---
ASSUMED CARE OF PATIENT AT APPROXIMATELY 0730. PATIENT IS A7OX4 WITH PERIODS OF FORGETFULNESS, VITAL SIGNS ARE STABLE. PATIENT TRANSFERS WITH 1 PERSON ASSIST WITH THE USES OF GAIT BELT AND WALKER. PATIENT VISITED WITH SPOUSE ON UNIT THIS SHIFT IN THE PATIENT'S ROOM. PATIENT REPORTED PAIN IN HER MOUTH AROUND HER GUMS. MEDICATIONS WERE GIVEN PER ORDERS FOR PAIN WIHT PATIENT EXPRESSING RELIEF. PATIENT PARTICIPATED IN SCHEDULED THERAPIES. FALL PRECAUTIONS IN PLACE AND NURSING WILL CONTINUE TO MONITOR PATIENT.
[2018-07-15 19:50] VITALS: BP 121/46
--- NOTE | 2018-07-16 03:23 | NUR ---
assumed care at approx 1900 evening 07/15. pt sitting up in w/c at change of shift alert and oriented x4, appropriate and cooperative. 02 at 2l per n/c. pt took hs meds with water tolerating well. pt sleeping in bed and then wanting to switch to recliner. alarm on, call light in reach. will continue to monitor.
[2018-07-16 05:30] LABS: HEMATOCRIT 24.3 % (37.0-47.0); HEMOGLOBIN 7.5 gm/dL (12.0-15.0); MCH 27.5 pg (26.0-34.0); MCHC 30.9 g/dL (28.0-37.0); MCV 88.8 fL (80.0-100.0); RBC 2.74 mil/uL (4.20-5.00); RDW 18.9 % (10.5-14.5); WBC 21.2 thou/uL (4.0-11.0)
[2018-07-16 05:35] LABS: CALCIUM 8.3 mg/dL (8.5-10.1); CREATININE 0.8 mg/dL (0.6-1.0); MAGNESIUM 2.2 mg/dL (1.8-2.4); POTASSIUM 4.6 mmol/L (3.5-5.1)
[2018-07-16 05:43] LABS: PLATELET COUNT 254 thou/uL (150-400)
[2018-07-16 06:46] LABS: ABSOLUTE NEUTROPHILS 18.2 thou/uL (1.4-8.2); ANISOCYTOSIS 2+
[2018-07-16 08:25] VITALS: BP 112/41
--- NOTE | 2018-07-16 15:45 | NUR ---
AAOX4 VERY PLEASANT AND COOPERTIVE. WORKS WITH THERAPIST. SALINE LOCK RIGHT HAND. O2 AT 2L NASAL CANULA. COMPLAINS OF MOUTH PAIN. UP IN RECLINER MOST OF SHIFT. FAIR APPETITE DUE TO MOUTH SORES. MAGIC MOUTH WASH ORDERED BY HOSPITALIST. PROGRESSING TOWARD GOALS.
[2018-07-16 19:32] VITALS: BP 120/44
--- NOTE | 2018-07-17 01:43 | NUR ---
PT ALERT AND ORIENTED X 4. 02 ON AT 2L PER NC CONT. 02 SAT 98%. BLOOD SUGAR 171 AT HS. INSULIN GIVEN ORDERED. PT C/O PAIN IN HER KNEES. HYDROCODONE GIVEN AT HS WITH PARTIAL PAIN RELIEF NOTED. PT C/O SORE MOUTH. MAGIC MOUTHWASH GIVEN ORDERED. C/O PAIN IN RIGHT HIP. VOLTAREN GEL APPLIED. BED ALARM ON FOR SAFETY. PT AWAKE AT THIS TIME SITTING ON SIDE OF BED. PT CHECKED ON HOURLY ROUNDS.
[2018-07-17 07:30] VITALS: BP 98/50
--- NOTE | 2018-07-17 13:37 | NUR ---
AAOX4. ASSISTED TO COMMON AREA FOR MEALS, TRAY SET UP. CBC NOTED. FALL PRECAUTIONS IN PLACE. FREQUENT CHECKS; WILL CONTINUE TO MONITOR.
[2018-07-17 21:01] VITALS: BP 120/53
--- NOTE | 2018-07-18 00:43 | NUR ---
PT ALERT AND ORIENTED X 4. UP IN RECLINER UNTIL NOW. TRANSFERRED TO BED WITH ASSIST X 1. VERY SOB WITH EXERTION, WHEEZING. RT IN FOR TREATMENT. 02 ON AT 2L PER NC CONT. BLOOD SUGAR 163 AT HS. INSULIN GIVEN ORDERED. PT C/O MOUTH PAIN. MAGIC MOUTHWASH GIVEN ORDERED. OTHERWISE, NO C/O PAIN. BED ALARM ON FOR SAFETY. PT CHECKED ON HOURLY ROUNDS.
[2018-07-18 08:08] VITALS: BP 135/51
--- NOTE | 2018-07-18 08:29 | NUR ---
ASSUME PT CARE AT 0700. REPORT SLEPT GOOD LAST NIGHT AFTER TOOK AMBIEM.PT ALERT AND ORIENTED X 4. FORGETFUL 02 ON AT 2L PER NC CONT. 02 SAT 95%. BLOOD SUGAR 141. NO INSULIN GIVEN. PT C/O PAIN IN HER RIGHT KNEE 11/05, US DOPPLER ORDER. HYDROCODONE GIVEN WITH MORNING MEDS. PT C/O SORE MOUTH. ORAL GEL GIVEN. MAGIC MOUTHWASH GIVEN EARLY THIS AM. C/O PAIN IN RIGHT HIP. VOLTAREN GEL APPLIED. BED ALARM ON FOR SAFETY. PT AWAKE AT THIS TIME SITTING ON SIDE OF BED. PT CHECKED ON HOURLY ROUNDS. FALL PRECAUTION IN PLACE. WILL HAVE BIOSY ON LEFT BREAST. DR. COPELAND WAS HERE THIS AM AND WANTS THERAPY HOLD UNTIL DVT CLEAR. OFFERED SUPPORTIVE CARE. REASSESSMENT PER CHART. VSS. LAST BM WAS 4 DAYS AGO. LAXATIVE GIVEN. WILL CONTINUE TO MONITOR.
[2018-07-18 09:46] VITALS: BP 135/51
[2018-07-18 10:08] LABS: CEA 5.1 ng/mL (0.0-4.7)
[2018-07-18 12:05] LABS: CA 27.29 80.7 U/mL (0.0-38.6)
[2018-07-18 19:33] VITALS: BP 132/41
--- NOTE | 2018-07-19 00:50 | NUR ---
PT ASSESSMENT COMPLETED AND VSS. MEDS GIVEN ORDERED AND WELL TOLERATED. FALL PRECAUTIONS IN PLACE. UP TO THE BATHROOM WITH ASST/GAIT/WALKER. THRUSH IN MOUTH. GOT AN ORDER FOR NYSTATIN AND GIVEN. MAGIC MOUTHWASH HELPFUL. PRN PAIN MEDICATION WORKING WELL FOR R HIP PAIN. ASST WITH REPOSITION. PT SLEEPING ON AND OFF AFTER SLEEP MEDICATION. WILL CONTINUE TO MONITOR FREQUENTLY.
[2018-07-19 05:44] LABS: ABSOLUTE NEUTROPHILS 10.4 thou/uL (1.4-8.2); BASOPHILS 1.2 % (0.0-2.0); EOSINOPHILS 0.7 % (0.0-3.0); LYMPHOCYTES 9.5 % (24.0-44.0); MCH 29.7 pg (26.0-34.0); MCV 89.8 fL (80.0-100.0); MONOCYTES 10.3 % (1.0-8.0); PLATELET COUNT 201 thou/uL (150-400); POLYS 78.3 % (36.0-66.0); RBC 2.34 mil/uL (4.20-5.00); RDW 19.1 % (10.5-14.5); WBC 13.2 thou/uL (4.0-11.0)
[2018-07-19 05:53] LABS: CALCIUM 7.9 mg/dL (8.5-10.1); CREATININE 0.9 mg/dL (0.6-1.0); MAGNESIUM 2.5 mg/dL (1.8-2.4); POTASSIUM 4.9 mmol/L (3.5-5.1)
[2018-07-19 07:44] VITALS: BP 110/54
--- NOTE | 2018-07-19 12:45 | NUR ---
team meeting, recommendation: 07/25/17, [facility], rt to check sat excer and noc o2 eval for possible home o2 needs. hh ( pt, ot, nursing, bath aid, sw,) need family assist with adl. hh choice provided.
--- NOTE | 2018-07-19 13:04 | NUR ---
Nutrition: pt seen per followup. Continues to eat well, observed 100% of lunch today despite complaints of thrush which is reportedly improving. Continues on steroids with BG improved- 132-176. No new weight since 07/11. Low risk.
--- NOTE | 2018-07-19 16:48 | NUR ---
NOTIFIED [facility] OF REFERRAL SPOKE WITH PIPER IN ADM SHE CAN ACCEPT PT. AT DC. ANTICIPATE DC 07/25. DCP TO FOLLOW.
--- NOTE | 2018-07-19 17:06 | PATH ---
[facility] [place] [address] PATHOLOGY RPT PROCEDURE Name: SHANNAN FINN Room #: 509-P ADM IN M.R.#: [id number] ������������������ Admission: 07/11/18 ������������������ Date of : 39 Discharge: Report #: [id number] Path Case #: [id number] LCA Accession Number: [id number] . 01 Material submitted: . breast - LT BREAST 6:00. Modifiers: left, 6:00 . 01 Clinical history: . Left breast mass, 6:00 SA . 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 LBQ/07/19/2018 . 02 Comment: Specimen type: Needle core biopsy Tumor site: Left breast 6:00 SA Tumor quantitation: 8 mm in contiguous length in a single core Histologic type: Invasive ductal carcinoma with lobular features Histologic grade: Olivia grade 2 Tubules, nuclei and mitoses: 3, 2 and 1, respectively LVSI: Not identified Microcalcifications: Not identified Biomarkers: ER, SD, Ki-67 and Her-2/arcadio Block: A1 . Co-review: Dr. Redd Yee . Findings of this case are telephoned to [facility] at 1:16 p.m. on 07/19/18. (IUV/db; 07/19/2018) . 02 Electronically signed: . Candace Lagunas MD, Pathologist NPI- [id number] . 01 Gross description: . The specimen is received in formalin, labeled "Shannan Finn, left breast BX", are several fibrofatty cores and its fragments ranging from 0.5 cm up to 0.2 cm in greatest dimension and measuring 0.2 x 0.6 x 0.2 cm in aggregate, entirely submitted in A1-A3. . The specimen was excised at:1130 on 07/18/18, placed in formalin at:1145 on 07/18/18, formalin exposure: Approximately [address] [address] PATHOLOGY RPT PROCEDURE Name: FINNJENNIFERWhitney Rodriguez Room #: 509-P [facility] IN M.R.#: [id number] ������������������ Admission: 07/11/18 ������������������ Date of : 39 Discharge: Report #: [id number] Path Case #: [id number] (SWS; 07/18/2018) SHS/SHS . 02 Pathologist provided ICD-10: C50.912 . 02 CPT . 536836 Specimen Comment: A courtesy copy of this report has been sent to Specimen Comment: [phone], , . Specimen Comment: Report sent to ,DR PLASCENCIA / DR COPELAND Performed at: [address], [place] [id number] MD Danie Saleem MD Phone: [phone] Performed at: [address] [id number] MD Candace Lagunas MD Phone: [phone]
--- NOTE | 2018-07-19 18:09 | NUR ---
ASSUME PT CARE AT 0700. REPORT SHE DIDN'T SLEEP WELL LAST NIGHT EVEN AFTER TOOK AMBIEM.PT ALERT AND ORIENTED X 4. FORGETFUL DESAT UP TO 4L OF OXYGEN, SAT 97% LUNG SOUNDS WHEEZING. OBTAINED ORDER AND CHEST XRAY RIGHT LOBE INFILTRATED. NOTIFIED DR. REYES ABOUT CHEST XRAY RESULTS. HE WILL ENTER ORDER. PT C/O PAIN IN HER RIGHT KNEE 11/05, HYDROCODONE GIVEN WITH MORNING MEDS. PT C/O SORE MOUTH. ORAL GEL GIVEN. MAGIC MOUTHWASH GIVEN EARLY THIS AM AND PT WAS STARTED ON NYSTATIN FOR THRUST. FEELS BETTER TODAY. C/O PAIN IN RIGHT HIP, BACK PAIN VOLTAREN GEL APPLIED. REASSESSMENT PER CHART. LAST BM WAS 4 DAYS AGO. BISACODYL SUPP GIVEN PER PT REQUESTS. SHE HAD XLARGE SOFT BLACK BM. HGB DROP. GI FOLLOW UP. TEAM CONFERENCE TODAY, PT MAY BE D/C HOME ON NEXT WEDNESDAY. CONCERN ABOUT OXYGEN AND AMS. UA ORDERED. NOT ABLE TO OBTAIN UA AT THIS MOMENT. WILL GIVE REPORT TO NIGHT NURSE TO CONTINUE TO MONITOR. BED ALARM ON FOR SAFETY. PT CHECKED ON HOURLY ROUNDS. FALL PRECAUTION IN PLACE. UP FOR THERAPY, DID OK BUT MORE TIRED. OFFERED SUPPORTIVE CARE, CONTINUE TO OFFER SUPPORT AND ENCOURAGEMENT.
[2018-07-19 19:27] VITALS: BP 128/50
[2018-07-19 19:46] LABS: URINE BILIRUBIN NEGATIVE (Negative); URINE BLOOD NEGATIVE (Negative); URINE CLARITY CLEAR; URINE COLOR YELLOW; URINE GLUCOSE-RANDOM* NEGATIVE (Negative); URINE KETONES NEGATIVE (Negative); URINE LEUKOCYTES-REFLEX NEGATIVE (Negative); URINE NITRITE-REFLEX NEGATIVE (Negative); URINE PROTEIN (DIPSTICK) NEGATIVE (Negative); URINE SPECIFIC GRAVITY 1.015 (1.005-1.035); URINE UROBILINOGEN 0.2 E.U./dl (0.2-1.0)
[2018-07-20 02:00] VITALS: BP 130/26
--- NOTE | 2018-07-20 02:15 | NUR ---
PATIENT HAD BM 07/19 BUT WANTED ANOTHER, LAXATIVES GIVEN BUT WILL HOLD ON SUPPOSITORY FOR NOW. SLEEPING IN CHAIR AND VOIDING ON BSC UNTIL DESIRE TO GET IN BED AT 0155, WANTING BACK UP IN CHAIR AND TRANSFERRED WITH 1P ASSIST BUT STRUGGLING TO BREATHE WITH AUDIBLE WHEEZE IN LEFT UPPER LOBE. O2 SAT 89% ON 4L BP 130/26 HR 120 RR 40. RAT TEAM CALLED
[2018-07-20 02:50] LABS: BE(vivo) 2.4 mmol/L (-2 to +3); HCO3 29.6 mmol/L (22.0-26.0); PCO2 64.7 mmHg (35.0-45.0); PO2 64.4 mmHg (80.0-100.0); sO2 89.1 % (92.0-98.0)
[2018-07-20 02:51] LABS: pH 7.278 (7.360-7.450)
--- NOTE | 2018-07-20 03:30 | NUR ---
PATIENT AND BELONGINGS TO ICU, REPORT GIVEN TO
[2018-07-20 03:35] LABS: MCHC 30.5 g/dL (28.0-37.0)
[2018-07-20 03:37] LABS: HEMATOCRIT 20.1 % (37.0-47.0); MCH 27.4 pg (26.0-34.0); MCV 89.9 fL (80.0-100.0); RBC 2.23 mil/uL (4.20-5.00); WBC 17.4 thou/uL (4.0-11.0)
[2018-07-20 03:40] LABS: HEMOGLOBIN 6.1 gm/dL (12.0-15.0)
--- NOTE | 2018-07-20 03:44 | NUR ---
pt with c/o soa and increased wheezes throughout. SMART ENERGY SPECIALIST called, see flowsheet.
[2018-07-20 03:49] LABS: CALCIUM 7.9 mg/dL (8.5-10.1); CREATININE 1.2 mg/dL (0.6-1.0)
[2018-07-20 03:50] LABS: POTASSIUM 5.4 mmol/L (3.5-5.1)
--- NOTE | 2018-07-20 04:43 | NUR ---
ATTEMPTING IV FOR LASIX AND SOLUMEDROL, PATIENT HAS BEEN PLACED ON BiPAP AFTER ABGs DRAWN AND EVALUATED.
--- NOTE | 2018-07-22 13:20 | PLAN ---
[facility] [place] [address] [address] REHAB UNIT PLAN OF CARE Name: AMARILYS FAITH Room #: 509-P [facility] IN M.R.#: [id number] Admission: 07/11/18 ������������������ Attend Phys: Farhad Burt MD Discharge: 07/20/18 ������������������ Date of : 39 Report #: [id number] THIS REPORT FOR: //name// CC: Farhad Burt DATE OF SERVICE: 07/13/2018 PROGRESS NOTE/OVERALL PLAN OF CARE SUBJECTIVE: The patient is seen back today in followup. I appreciate, Dr. Patterson's assistance. Tapering steroids with transition to p.o. and antibiotics to p.o. Note that the bronchoscopy and biopsy of the suspicious lung mass will be done as an outpatient along with PET scan, etc. She is currently on 2 liters, which she is utilizing especially with increased activity and some drop her sats. Transfers have been standby assistance with gait min assist 30 feet front-wheeled walker. Lower body dressing is max assist. ASSESSMENT: 1. Acute exacerbation of chronic obstructive pulmonary disease. 2. Community-acquired pneumonia. 3. Hypertension. 4. Hyperlipidemia. 5. History of anemia. 6. History of ulcer disease. 7. Chronic back pain. 8. Degenerative arthritis of the knees. 9. Peripheral vascular disease with history of stents. 10. Consolidation of the right upper lobe suspicious for a lung mass. We will need workup as an outpatient as per Pulmonary. PLAN: The overall plan of care is based on the preadmission screen, post-admission physician evaluation and information garnered from therapy assessments. 1. Estimated length of stay is at least 10 days to 2 weeks. 2. Medical prognosis is reasonably good. 3. Anticipated interventions includes the interdisciplinary acute inpatient rehabilitation program. 4. Anticipated functional outcomes would be for the patient to become modified independent with transfers, mobility and ADLs at a walker level and hopefully wean off her oxygen. 5. Discharge destination would be back home where she lives with her . 6. Expected therapy by discipline includes PT and OT 1-1/2 hours per day each [address] [address] REHAB UNIT PLAN OF CARE Name: AMARILYS FAITH Room #: 509-P [facility] IN ..#: [id number] Admission: 07/11/18 ������������������ Attend Phys: Farhad Burt MD Discharge: 07/20/18 ������������������ Date of : 39 Report #: [id number] five days a week throughout the duration of the acute inpatient rehabilitation stay. ��������������������������������������������� <ELECTRONICALLY SIGNED> ���������������������������������������� By: Farhad Burt MD ��������������������������������������������� 07/22/18 1320 0843 1450 Farhad Burt MD /nt
--- NOTE | 2018-07-22 13:20 | H ---
[place] [address] HISTORY AND PHYSICAL Name: AMARILYS FAITH Room #: 509-P [facility] IN M.R.#: [id number] Admission: 07/11/18 ������������������ Attend Phys: Farhad Burt MD Discharge: 07/20/18 ������������������ Date of : 39 Report #: [id number] THIS REPORT FOR: //name// CC: Farhad Burt DATE OF SERVICE: 07/11/2018 HISTORY AND PHYSICAL/POST-ADMISSION PHYSICIAN EVALUATION: HISTORY OF PRESENT ILLNESS: This is a 78-year-old white female originally admitted to 06/29/2018 with acute exacerbation of chronic obstructive pulmonary disease and community-acquired pneumonia. She was placed on IV antibiotics, IV steroids, nasal cannula O2, nebulizer, IV Lasix. She was followed by the Hospitalist Service and geriatrics as well as by Pulmonary Medicine. There was an apparent large left breast mass with coarse calcifications and Surgery is following. Surgery notes are going to review the previous mammogram records. Regarding her lung mass which is a left hilar lung mass, they are recommending biopsying the mass when she is medically optimized, which may not be for some time. She has had a COPD exacerbation and is being treated for pneumonia. She is noted to have medical complex with generalized debilitation and has not been admitted for acute in-hospital inpatient rehabilitation. PAST MEDICAL HISTORY: Includes hypertension, COPD, elevated cholesterol, bilateral breast CA, bleeding ulcer, anemia, falls, peripheral vascular disease, GI bleed, sciatica. PAST SURGICAL HISTORY: Bilateral breast biopsies in the past, cataract, total hip replacement, bilateral, left shoulder rotator cuff repair and replacement, bilateral lower extremity iliac stents, left carotid endarterectomy. MEDICATIONS: Please see the full medication listing. This includes vitamins, herbals, and supplements. ALLERGIES: KEFLEX, CODEINE, LEVOFLOXACIN. SOCIAL HISTORY: Lives with her , house, 2 steps to enter than a one level. She was independent with ADLs. The groceries delivered. She has a front-wheeled walker from the home used the wheelchair a transport chair for community distances. HABITS: No history of alcohol, drug abuse, tobacco, quit greater than a year ago. FAMILY HISTORY: No pertinent history noted. [address] [address] HISTORY AND PHYSICAL Name: AMARILYS FAITH Room #: 509-P [facility] IN [facility].#: [id number] Admission: 07/11/18 ������������������ Attend Phys: Farhad Burt MD Discharge: 07/20/18 ������������������ Date of : 39 Report #: [id number] REVIEW OF SYSTEMS: No current complaints of fever or chills. No chest pain, shortness of breath, abdominal discomfort. She has some chronic knee discomfort and notes she has had some chronic problems with some lower extremity swelling. No numbness, tingling, dizziness. PHYSICAL EXAMINATION: GENERAL: The patient is a 78-year-old white female, in no obvious distress. VITAL SIGNS: Last recorded temperature 98.2, pulse 90, respirations 20, blood pressure 132/58. She is alert, pleasant. HEENT: Appeared to be benign. Cranial nerves grossly intact. Facies are symmetric. EXTREMITIES: She has functional range of motion of both upper extremities. Strength is grade 4-/5. DTRs are trace to 1. CHEST: Sounded clear to auscultation. CARDIAC: Regular rate and rhythm. ABDOMEN: Bowel sounds positive, nontender. GENITOURINARY AND RECTAL: Deferred. Functional range of motion of both upper extremities. Strength is grade 4-/5. DTRs are trace to 1. LOWER EXTREMITIES: Trace lower extremity edema. Negative Homans. Strength is probably grade 4- to 3+/5. DTRs are trace to 1. She is moving functionally with gait up to 75 feet, min assist. She is needing assistance with basic transfers. She is on oxygen, which she notes is new for her. She was not on premorbid O2. Currently on 2 liters. ASSESSMENT: This is a 78-year-old white female with the following problem list: 1. Acute exacerbation of chronic obstructive pulmonary disease. 2. Community-acquired pneumonia. 3. Hypertension. 4. Hyperlipidemia. 5. History of anemia. 6. History of ulcer disease. 7. Chronic low back pain. 8. Degenerative arthritis of the knees. 9. Peripheral vascular disease with history of stents. PLAN: The patient was admitted for acute in-hospital inpatient rehabilitation. From a postadmission physician evaluation perspective, there are no relevant changes since the preadmission screening. Please see the above review of prior and current medical and functional conditions and comorbidities. Please see the patient's previous and current functional status. As far as risk of complications, the patient has multiple medical comorbidities as noted above. Initial plan of care involves the interdisciplinary acute inpatient rehabilitation program with goal of maximizing the patient's functional independence, so she can hopefully return back to her prior living situation. Measurable functional goals would be for the patient to become modified [address] [address] HISTORY AND PHYSICAL Name: AMARILYS FAITH Room #: 509-P [facility] IN M.R.#: [id number] Admission: 07/11/18 ������������������ Attend Phys: Farhad Burt MD Discharge: 07/20/18 ������������������ Date of : 39 Report #: [id number] independent with transfers, mobility, ADLs, so that she can hopefully return back to her prior living situation. We will be working on improving overall endurance. Potential barriers would include her multiple medical comorbidities and decreased functional status. The patient meets diagnostic criteria for an acute in-hospital inpatient rehabilitation stay. She meets medical necessity criteria and we will have the franchise business consultant physicians continue to follow. She does have the tolerance for therapies and has appropriate discharge goals back to the home setting. ��������������������������������������������� <ELECTRONICALLY SIGNED> ���������������������������������������� By: Farhad Burt MD ��������������������������������������������� 07/22/18 1320 0842 0911 Farhad Burt MD /nt
== END 2018-07-20 03:30 | disposition home or self-care (01) | DRG 193 ==
PROVIDERS: Internal Medicine Gastroenterology; Internal Medicine Hematology & Oncology; Nurse Practitioner; Nurse Practitioner Family; ADMIT Physical Medicine & Rehabilitation
DX: J18.9 Pneumonia, unspecified organism (principal); J96.01 Acute respiratory failure with hypoxia; J96.02 Acute respiratory failure with hypercapnia; J44.1 Chronic obstructive pulmonary disease with (acute) exacerbation; D62 Acute posthemorrhagic anemia; E87.0 Hyperosmolality and hypernatremia; B37.0 Candidal stomatitis; J44.0 Chronic obstructive pulmonary disease with (acute) lower respiratory infection; I10 Essential (primary) hypertension; E78.5 Hyperlipidemia, unspecified; F43.23 Adjustment disorder with mixed anxiety and depressed mood; M17.0 Bilateral primary osteoarthritis of knee; M54.5 Low back pain; G89.29 Other chronic pain; E66.9 Obesity, unspecified; R53.81 Other malaise; K59.00 Constipation, unspecified; M54.30 Sciatica, unspecified side; M62.84 Sarcopenia; G62.9 Polyneuropathy, unspecified; R91.8 Other nonspecific abnormal finding of lung field; D63.8 Anemia in other chronic diseases classified elsewhere; K21.9 Gastro-esophageal reflux disease without esophagitis; G31.84 Mild cognitive impairment of uncertain or unknown etiology; Z96.612 Presence of left artificial shoulder joint; I73.9 Peripheral vascular disease, unspecified; Z96.643 Presence of artificial hip joint, bilateral; Z68.35 Body mass index [BMI] 35.0-35.9, adult; Z95.820 Peripheral vascular angioplasty status with implants and grafts; Z87.891 Personal history of nicotine dependence; Z85.3 Personal history of malignant neoplasm of breast; Z91.81 History of falling; Z87.11 Personal history of peptic ulcer disease; Z90.49 Acquired absence of other specified parts of digestive tract; Z79.899 Other long term (current) drug therapy; Z88.1 Allergy status to other antibiotic agents; Z88.5 Allergy status to narcotic agent; Z88.8 Allergy status to other drugs, medicaments and biological substances; Z80.49 Family history of malignant neoplasm of other genital organs; Z80.0 Family history of malignant neoplasm of digestive organs; Z80.3 Family history of malignant neoplasm of breast
CPT/HCPCS: 10112

== ENCOUNTER 2018-07-20 04:00 | Inpatient (IN) | payer OTHER ==
[2018-07-20] VITALS (35 sets, daily range): BP systolic 98–153; BP diastolic 34–84
[~2018-07-20] VITALS: Ht 162.6 cm; Wt 93.3 kg
--- NOTE | 2018-07-20 04:00 | NUR ---
PER PATIENT SUGGESTION PRANAY JETER WAS CALLED USING HER OWN CELL PHONE. PRANAY'S ANSWERED AND HE WAS INFORMED THAT PATIENT IS NOW IN ROOM 242 TO GET A LITTLE HELP BREATHING. HE SAID THEY WOULD REACH OUT TO AMARILYS'S NENO AROUND 7 THIS MORNING
[2018-07-20 05:07] LABS: BE(vivo) 4.7 mmol/L (-2 to +3); HCO3 31.4 mmol/L (22.0-26.0); PCO2 62.4 mmHg (35.0-45.0); PO2 84.7 mmHg (80.0-100.0); sO2 95.3 % (92.0-98.0)
--- NOTE | 2018-07-20 08:15 | NUR ---
Recived pt from 5n-admitted to ICU 242. Pt lethargic, On bipap. Resp labored and conversation limited. Still Wheezes throughout lung field, use of accessory muscle. post bipap abg done-called to Dr Pavon with status update. Monitor Sr. BP wnl. HGb critical-ENGLISH HORN PLAYER Bart aware. No s/s of bleeding x bruising noted of lower abd -possible lovenox?. Blood orderd for transfusion today. Cont plan of care
--- NOTE | 2018-07-20 10:17 | NUR ---
Case opened to follow for dc planning. Pt known to cm from recent admissions and readmission from acute rehab with respiratory distress. The pt is currently in ICU on bipap. She is sleeping. Nursing reports she did talk with her spouse via phone this am and he may not be able to come visit today. The pt lives with her spouse in their own home. They have 3 steps to enter with a railing and every thing is on the main level. Laundry is in the basement with 10 steps down. Pt's victoriano is able to help with some house keeping chores and errands. 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 The pt has a pill box for med mngt, a rwalker and a nebulizer. Spouse helps with upper ext dressing but she is normally able to manage adl's and gait within the home. She has had hh with [facility] in the recent past and would like to use them again. acute rehab team was recommending another week of therapy prior to dcing home with HH. Pt was being evaluated for possible home o2 needs at [facility]. ONC consult pending d/t lung mass. Hx of taylor flowers. Will follow for possible return to acute rehab or to reassess for HH or SNF referrals at [facility].
[2018-07-20 14:15] LABS: HEMATOCRIT 23.5 % (37.0-47.0); HEMOGLOBIN 7.6 gm/dL (12.0-15.0)
--- NOTE | 2018-07-20 15:23 | NUR ---
VASCULAR ACCESS CALLED FOR PIV FOR CT, PT HAS VERY DEEP SMALL VESSELS. MIDLINE DISCUSSED WITH PT'S AND HE VERBALIZED CONSENT. PT WAS PREPPED AND DRAPED FOR MAX BARRIER PRECAUTIONS. NAIMA BRACHIAL WIDELY PATENT WITH USG,1% LIDOCAINE GIVEN SQ 4FR POWER MIDLINE TRIMMED TO 17CM INSERTED TO 2CM EXTERNAL WITH BRISK BR. LINE SECURED. RELEASED FOR IMMEDIATE USE PER PROTOCOL TO KLAUDIA ZAMBRANO.
--- NOTE | 2018-07-20 17:23 | NUR ---
SPOKE WITH DR. REYES ABOUT CT RESULTS, DR. SMALLS NOTIFIED. AWAITING NEW ORDERS.
[2018-07-20 18:27] LABS: HEMATOCRIT 24.5 % (37.0-47.0); HEMOGLOBIN 7.8 gm/dL (12.0-15.0); MCH 28.1 pg (26.0-34.0); MCHC 31.6 g/dL (28.0-37.0); MCV 88.9 fL (80.0-100.0); RBC 2.76 mil/uL (4.20-5.00); RDW 17.2 % (10.5-14.5); WBC 13.4 thou/uL (4.0-11.0)
[2018-07-20 18:39] LABS: PROTIME 9.6 Seconds (9.3-11.4)
--- NOTE | 2018-07-20 19:52 | NUR ---
PATIENT ALERT AND ORIENTED X4, PAIN CONTROLLED WITH MEDICATION. SINUS RHYTHM ON MANAGER ENDOSCOPY. ON BIAP. PATIENT NPO. PAYTON PATENT AND DRAINING. RIGHT MIDLINE INTIACT, HEPARIN GTT STARTED PER PE PROTOCOL. PATIENT UPDATED ON THE PLAN OF CARE. NO SIGNS OF ACUTE DISTRESS NOTED AT THIS TIME. WILL CONTINUE TO MONITOR.
[2018-07-20 22:30] LABS: HEMATOCRIT 21.8 % (37.0-47.0)
[2018-07-21] VITALS (59 sets, daily range): BP systolic 97–182; BP diastolic 17–133
[2018-07-21 06:30] LABS: HEMATOCRIT 20.6 % (37.0-47.0); HEMOGLOBIN 6.6 gm/dL (12.0-15.0); MCH 28.8 pg (26.0-34.0); MCHC 32.2 g/dL (28.0-37.0); MCV 89.5 fL (80.0-100.0); RBC 2.31 mil/uL (4.20-5.00); RDW 17.6 % (10.5-14.5); WBC 8.6 thou/uL (4.0-11.0)
[2018-07-21 06:33] LABS: CALCIUM 8.4 mg/dL (8.5-10.1); CREATININE 0.8 mg/dL (0.6-1.0)
[2018-07-21 07:36] LABS: BE(vivo) 6.3 mmol/L (-2 to +3); HCO3 32.4 mmol/L (22.0-26.0); PCO2 57.4 mmHg (35.0-45.0); PO2 75.9 mmHg (80.0-100.0); sO2 94.5 % (92.0-98.0)
--- NOTE | 2018-07-21 07:50 | NUR ---
ASSUMED CARE @ 1900 07/20/18, PT ASSESSMENTS AND VSS COMPLETE PER ICU PROTOCOL, PT ALERT AND ORIENTED TO SELF, SITUATION AND TIME, DISORIENTED TO PLACE, PT ABLE TO FOLLOW COMMANDS, FENTANYL PRN GIVEN X 2 DURING THE SHIFT. PT SR ON THE MONITOR, AFEBRILE, HEPARIN GTT IN PLACE, HEPARIN WITHIN RANGE X2. HGB 6.6, DR FERRER NOTIFIED, NEW ORDERS RECIEVED. PT ON BIPAP, SATS IN THE HIGH 90'S. PT STRICT NPO PER DR FERRER, PAYTON IN PLACE, GOP NOTED. PLAN OF CARE- CONT TO MONITOR.
--- NOTE | 2018-07-21 10:32 | 2DMMODE ---
[facility] [employer] [address] 2 D/M-MODE ECHOCARDIOGRAM Name: AMARILYS FAITH Room #: 242-P [facility] IN M.R.#: [id number] ������������� Admission: 07/20/18 ������������� Attend Phys: Shaggy Cerna MD Discharge: ��� ������������� ��� Date of : 38 Date of Service: 07/21/18 1031 �� Report #: [id number] �������� ��������������������������������������������[id number] THIS REPORT FOR: //name// APPROVED REPORT Study performed: 07/21/2018 08:06:11 EXAM: Comprehensive 2D, Doppler, and color-flow Echocardiogram Patient Location: ICU Room #: 242 Status: routine BSA: 2.01 HR: 83 bpm BP: 155/44 mmHg Other Information Study Quality: Technically Difficult Technically limited study due to body habitus, inability to position patient. Indications Congestive Heart Failure COPD Hypertension/HDD PE 2D Dimensions RVDd: 31.26 mm IVSd: 12.74 (7-11mm) LVOT Diam: 14.75 (18-24mm) LVDd: 32.57 mm PWd: 14.08 (7-11mm) LVDs: 22.58 (25-40mm) Aortic Root: 29.01 mm IVC: 22.00 mm Volumes Left Atrial Volume (Systole) Single Plane 4CH: 81.04 mL Single Plane 2CH: 107.92 mL LA ESV Index: 53.00 mL/m2 Aortic Valve AoV Peak Price.: 3.46 m/s AO Peak Gr.: 47.82 mmHg LVOT Max P.46 mmHg AO Mean Gr.: 27.02 mmHg LVOT Mean P.97 mmHg AO V2 Mean: 2.44 m/s LVOT Max V: 1.17 m/s AO V2 VTI: 75.84 cm LVOT Mean V: 0.81 m/s [facility] [place] [employer] [address] 2 D/M-MODE ECHOCARDIOGRAM Name: AMARILYS FAITH Room #: 242-P [facility] IN .R.#: [id number] ������������� Admission: 07/20/18 ������������� Attend Phys: Shaggy Cerna MD Discharge: ��� ������������� ��� Date of : 38 Date of Service: 07/21/18 1031 �� Report #: [id number] �������� ��������������������������������������������[id number] ANTOINE (VTI): 0.65 cm2 LVOT V1 VTI: 28.64 cm ANTOINE Vmax: 0.58 cm2 SV (LVOT): 48.94 mL Mitral Valve MV Peak Gr.: 24.25 mmHg MV Mean Gr.: 9.41 mmHg MV Decel. Time: 311.88 ms MV Max Price.: 2.46 m/s MV Mean Price.: 1.40 m/s MV VTI: 541.03 mm MVA VTI: 90.46 mm2 MV PHT: 90.45 ms MVA (PHT): 2.44 cm2 IVRT: 48.44 ms Pulmonary Valve PV Peak Price.: 1.07 m/s PV Peak Gr.: 4.57 mmHg Tricuspid Valve TR Peak Price.: 2.86 m/s RAP Estimate: 10.00 mmHg TR Peak Gr.: 32.68 mmHg PA Pressure: 43.00 mmHg Left Ventricle The left ventricle is normal size. Mild to moderate concentric left ventricular hypertrophy. The left ventricular systolic function is normal. The left ventricular ejection fraction is within the normal range. LVEF is 60-65%. Mild diastolic dysfunction is present (impaired relaxation pattern). Right Ventricle The right ventricle is normal size. The right ventricular systolic function is normal. Atria Left atrium is severely dilated. The right atrium size is normal. Aortic Valve Aortic valve is heavily calcified. No aortic regurgitation is present. There is moderate to severe valvular aortic stenosis. Calculated aortic valve area is 0.6 cm2 with maximum pressure gradient of 48 mmHg and mean pressure gradient of 27 [place] [address] 2 D/M-MODE ECHOCARDIOGRAM Name: AMARILYS FAITH Room #: 242-P [facility] IN ..#: [id number] ������������� Admission: 07/20/18 ������������� Attend Phys: Shaggy Cerna MD Discharge: ��� ������������� ��� Date of : 38 Date of Service: 07/21/18 1031 �� Report #: [id number] �������� ��������������������������������������������[id number] Moderate to severe mitral annular calcification. Mild mitral regurgitation. Moderate to severe mitral stenosis. Calculated mitral valve area is 0.9 cm2 with maximum pressure gradient of 24 mmHg and mean pressure gradient of 9.4 mmHg. Tricuspid Valve The tricuspid valve is normal in structure. Mild tricuspid regurgitation. PAP is estimated at 43 mmHg. Pulmonic Valve Pulmonic valve is not well visualized. Great Vessels The aortic root is normal in size. IVC is dilated and collapses >50% with inspiration. Pericardium There is no pericardial effusion. <Conclusion> The left ventricle is normal size. LVEF is 60-65%. Left atrium is severely dilated. Aortic valve is heavily calcified. No aortic regurgitation is present. There is moderate to severe valvular aortic stenosis. Calculated aortic valve area is 0.6 cm2 with maximum pressure gradient of 48 mmHg and mean pressure gradient of 27 mmHg. ( But not well visualized Ao Vmax< 4m/s ) Moderate to severe mitral annular calcification. Mild mitral regurgitation. Moderate to severe mitral stenosis. Calculated mitral valve area is 0.9 cm2 with maximum pressure gradient of 24 mmHg and mean pressure gradient of 9.4 mmHg. The tricuspid valve is normal in structure. Mild tricuspid regurgitation. PAP is estimated at 43 mmHg. Pulmonic valve is not well visualized. There is no pericardial effusion. ��������������������������������������������� <ELECTRONICALLY SIGNED> ���������������������������������������� By: Chester Bhatt MD ��������������������������������������������� 07/21/18 1031 1031 1031 Chester Bhatt MD /INF
--- NOTE | 2018-07-21 15:30 | NUR ---
SUMMARY: ON THE BIPAP MOST OF THE DAY, OFF FOR SHORT PERIODS OF TIME AND ON 4LPER NC. SHORTNESS OF BREATH AT TIMES. MEDICATED FOR PAIN WITH PRN MEDS. TOLERATING DIET, FAMILY UPDATED BY PHYCISIANS THEY ROUNDED. TO I.R. THIS AFTERNOON FOR IVC FILTER PLACEMENT. HEPARIN GTT. SCD'S AND MEENAKSHI ROSS ON BLE. WILL CONTINUE WITH POC.
--- NOTE | 2018-07-21 16:33 | NUR ---
Case discussed with the care team. Bronch/lung bx planned tomorrow. IVC filter placed today. Dr. Theodore consult for goals of care. Breast bx pending. Pt remains in ICU. Will follow.
[2018-07-22] VITALS (46 sets, daily range): BP systolic 126–194; BP diastolic 40–124
--- NOTE | 2018-07-22 02:19 | NUR ---
ASSUMED CARE OF PATIENT AT 1900. VSS, AFEBRILE. ON AND OFF BIPAP THROUGH THE NIGHT. TOLERATING FAIRLY WELL. BATH GIVEN, BECOMES EXTREMELY SHORT OF AIR WITH ANY ACTIVITY. PAIN MEDS GIVEN ORDERED FOR RELIEF. SLEEPING OFF AND ON. TURNED Q2. NPO AFTER MIDNIGHT FOR PLANNED BRONCHOSCOPY IN AM.
[2018-07-22 05:13] LABS: BE(vivo) 6.4 mmol/L (-2 to +3); HCO3 32.9 mmol/L (22.0-26.0); PCO2 60.1 mmHg (35.0-45.0); PO2 72.3 mmHg (80.0-100.0); pH 7.356 (7.360-7.450); sO2 93.5 % (92.0-98.0)
[2018-07-22 05:16] LABS: HEMATOCRIT 23.3 % (37.0-47.0); HEMOGLOBIN 7.4 gm/dL (12.0-15.0); MCH 27.2 pg (26.0-34.0); MCHC 31.9 g/dL (28.0-37.0); MCV 85.1 fL (80.0-100.0); RBC 2.73 mil/uL (4.20-5.00); RDW 23.1 % (10.5-14.5); WBC 11.7 thou/uL (4.0-11.0)
[2018-07-22 05:22] LABS: CALCIUM 8.1 mg/dL (8.5-10.1); CREATININE 0.8 mg/dL (0.6-1.0); POTASSIUM 5.2 mmol/L (3.5-5.1)
--- NOTE | 2018-07-22 17:38 | NUR ---
PT WAS TRANSFERRED BACK TO ROOM 236 PER BED ON WA. REPORT GIVEN TO INDERJIT ZAMBRANO. PT RECONNECTED TO MONITOR AND CT TO SUCTION PRIOR TO MY LEAVING THE UNIT. PT IS STABLE CONDITION. DR CUETO WAS GOING TO SPEAK WITH DR. REYES POST PROCEDURE.
--- NOTE | 2018-07-22 17:47 | NUR ---
PATIENT WENT TO I.R. THIS AFTERNOON FOR LUNG BIOPSIES, CAME BACK WITH CHEST TUBE AND PLACED ON SUCTION. DR. REYES NOTIFIED THAT FAMILY WANTED AN UPDATE AND WAS ABLE TO TALK TO PATIENT'S NIECE ON THE PHONE WITH UPDATE AND QNS ANSWERED. MEDAICATED FOR PAIN WITH PRN MEDS. WILL CONTINUE TO MONITOR.
[2018-07-23] VITALS (27 sets, daily range): BP systolic 121–201; BP diastolic 25–104
--- NOTE | 2018-07-23 06:53 | NUR ---
Pt rested well through the night on current BiPap settings. PRN fentanyl and hydrocodones given for c/o chest "soreness" with desired effects achieved. VS stable and chest tube drainage minimal. Urine output adequate for shift. Am lab results pending, continue with POC.
[2018-07-23 07:26] LABS: HEMATOCRIT 23.9 % (37.0-47.0); HEMOGLOBIN 7.5 gm/dL (12.0-15.0); MCH 26.9 pg (26.0-34.0); MCHC 31.3 g/dL (28.0-37.0); MCV 85.8 fL (80.0-100.0); RBC 2.78 mil/uL (4.20-5.00); RDW 22.4 % (10.5-14.5); WBC 14.2 thou/uL (4.0-11.0)
[2018-07-23 07:31] LABS: CALCIUM 8.7 mg/dL (8.5-10.1); CREATININE 0.9 mg/dL (0.6-1.0); POTASSIUM 4.9 mmol/L (3.5-5.1)
--- NOTE | 2018-07-23 18:45 | NUR ---
Pt alert & oriented. ROSS. Responds appropriately. Pt has had multiple family members including her visit today. Dr Pavon spoke with patient and her family about lung cancer, pending pathology and treatment plan. Pt has had intermittent periods of anxiety today-emotional support provided. Sinus tachycardia with BBB. Blood pressure elevated when anxious. Pt. was switched from BIPAP to High flow oxygen device by RT today. Breath sounds diminished. Bilateral wheezing. Occasional coughing. Pt desaturates with limited movement. Tolerating meals. Adequate urine output. Adequate pain control reported. Pt was up to bedside chair for 1.5 hours today with assist of PT. Pt back in bed resting now. Report given to RN assuming care.
[2018-07-24] VITALS (27 sets, daily range): BP systolic 144–204; BP diastolic 43–137
[2018-07-24 00:45] LABS: HEMATOCRIT 23.1 % (37.0-47.0); HEMOGLOBIN 7.1 gm/dL (12.0-15.0); MCH 26.4 pg (26.0-34.0); MCHC 30.7 g/dL (28.0-37.0); MCV 85.9 fL (80.0-100.0); RBC 2.69 mil/uL (4.20-5.00); WBC 19.1 thou/uL (4.0-11.0)
[2018-07-24 00:53] LABS: CALCIUM 8.7 mg/dL (8.5-10.1); CREATININE 0.8 mg/dL (0.6-1.0); POTASSIUM 4.9 mmol/L (3.5-5.1)
--- NOTE | 2018-07-24 06:31 | NUR ---
END OF SHIFT SUMMARY: Pt has slept well tonight. Medial Chest tube x1 remains patent to -20 cmH2O, no air leak or crepitus, no drainage this shift. Lungs remain diminished with intermittent wheezing. Pt has been on Bipap 14/6, 40% throughout night, sat has been > 92%. Skin integrity remains intact. Urine output adequate. Heparin gtt in therapeutic range.
[2018-07-25] VITALS (26 sets, daily range): BP systolic 72–178; BP diastolic 33–110
--- NOTE | 2018-07-25 04:27 | NUR ---
ASSUMED CARE OF PT. AT 1900. PT. IS CONFUSED ON OCCASION, BUT IS NOW A&O X4. DENIES ANY PAIN. PT. TOLERATED BIPAP OVERNIGHT. SOME RESTLESS PERIODS, BUT SLEPT WELL OVERALL. NO BOWEL MOVEMENT OVERNIGHT. ASSESSMENTS AND VS CHARTED. PLAN OF CARE IS TO CONTINUE TO MONTIOR OXYGENATION AND REPLACE CURRENT CHEST TUBE DURING THE DAY. WILL CONTINUE TO MONITOR.
[2018-07-25 04:41] LABS: CALCIUM 8.7 mg/dL (8.5-10.1); CREATININE 0.5 mg/dL (0.6-1.0); POTASSIUM 5.2 mmol/L (3.5-5.1)
[2018-07-25 04:45] LABS: HEMATOCRIT 22.6 % (37.0-47.0); HEMOGLOBIN 7.1 gm/dL (12.0-15.0); MCH 27.2 pg (26.0-34.0); MCHC 31.2 g/dL (28.0-37.0); MCV 87.2 fL (80.0-100.0); RBC 2.6 mil/uL (4.20-5.00); WBC 17.2 thou/uL (4.0-11.0)
[2018-07-25 05:20] LABS: BE(vivo) 8.8 mmol/L (-2 to +3); HCO3 36.7 mmol/L (22.0-26.0); PO2 106.8 mmHg (80.0-100.0)
[2018-07-25 05:24] LABS: PCO2 78.3 mmHg (35.0-45.0); pH 7.289 (7.360-7.450)
--- NOTE | 2018-07-25 10:56 | NUR ---
VASCULAR ACCESS CONSULTED FOR OTW EXCHANGE FOR PICC, 5FR TLPICC ATTEMPTED UNABLE TO PASS R SHOULDER ARE AFTER NUMEROUS TRIES. SO PICC TRIMMED TO 15CM INSERTED MIDLINE AND LABELED.RN NOTIFIED THAT LINE IS MIDLINE SO MEDS NEED TO BE COMPATABLE AND ESHA ZAMBRANO IS CALLING MD.
[2018-07-25 15:43] LABS: HEMATOCRIT 25.4 % (37.0-47.0)
--- NOTE | 2018-07-25 16:49 | NUR ---
ASSUMED CARE OF PT AT 0645. 1 UNIT PRBC ORDERED, ANTIBODY PRESENT, HGB RECHECK 8.0. HEPARIN GTT. IV TEAM ATTEMPTED TO OVER THE WIRE CHANGE MIDLINE TO PICC, UNABLE TO ADVANCE CATHETER. DR OCONNOR WANTS PT TO GET PICC LINE IN IR TOMORROW. BIPAP AND OPTIFLO WHILE EATING. SAT AT THE SIDE OF BED WITH THERAPY. AND NIECES AT BEDSIDE. KARI (NIECE) WANTS HER TO BE BACK ON SUPPLEMENTS, AND WANTS DR TO READ ARTICLE ABOUT SPONTANEOUS REGRESSION. NOT READY FOR PALLIATIVE CARE, WHICH IS WHAT PHYSICIANS ARE SUGGESTING. NERISSA DIET. ADEQUATE OUTPUT FROM CT. IV LASIX X1. NO PROGRESS TOWARD PLAN OF CARE.
[2018-07-26] VITALS (23 sets, daily range): BP systolic 120–185; BP diastolic 33–69
[2018-07-26 05:18] LABS: ABSOLUTE NEUTROPHILS 12.9 thou/uL (1.4-8.2); BASOPHILS 0.4 % (0.0-2.0); EOSINOPHILS 0.1 % (0.0-3.0); HEMATOCRIT 23.5 % (37.0-47.0); HEMOGLOBIN 7.5 gm/dL (12.0-15.0); LYMPHOCYTES 3.2 % (24.0-44.0); MCH 27.2 pg (26.0-34.0); MCHC 31.8 g/dL (28.0-37.0); MCV 85.3 fL (80.0-100.0); MONOCYTES 4.8 % (1.0-8.0); PLATELET COUNT 240 thou/uL (150-400); POLYS 91.5 % (36.0-66.0); RBC 2.75 mil/uL (4.20-5.00); RDW 20.4 % (10.5-14.5); WBC 14.1 thou/uL (4.0-11.0)
[2018-07-26 05:24] LABS: ANION GAP < 0 mmol/L (7-16); BUN 28 mg/dL (7-18); CALCIUM 8.6 mg/dL (8.5-10.1); CHLORIDE 104 mmol/L (98-107); CO2 40 mmol/L (21-32); CREATININE 0.7 mg/dL (0.6-1.0); GLUCOSE 122 mg/dL (74-106); MAGNESIUM 2.4 mg/dL (1.8-2.4); POTASSIUM 4.9 mmol/L (3.5-5.1); SODIUM 143 mmol/L (136-145)
--- NOTE | 2018-07-26 05:34 | NUR ---
Pt resting well through noc on BIPAP. Medicated per EMAR for pain at chest tube site with desired effect. CT to DD w/ about 100 ml serous sang. output. Tearful at one point re: diagnosis and prognosis. Emotional support offered. Assists to reposition. Kovacs to DD w/ adeuquate output. Will continue to monitor.
[2018-07-26 08:47] LABS: ALBUMIN 2.3 g/dL (3.4-5.0); SGOT 18 U/L (15-37); SGPT 21 U/L (30-65); TOTAL BILIRUBIN 0.3 mg/dL (<0.1-1.0); TOTAL PROTEIN 5.4 g/dL (6.4-8.2)
[2018-07-26 11:23] LABS: BE(vivo) 8.8 mmol/L (-2 to +3); HCO3 36.5 mmol/L (22.0-26.0); PO2 93.4 mmHg (80.0-100.0); sO2 96.2 % (92.0-98.0)
[2018-07-26 11:25] LABS: PCO2 72.8 mmHg (35.0-45.0); pH 7.318 (7.360-7.450)
--- NOTE | 2018-07-26 13:06 | PATH ---
[facility] [address] [place] [address] PATHOLOGY RPT PROCEDURE Name: AMARILYS FAITH Room #: 236-P ADM IN M.R.#: [id number] ������������������ Admission: 07/20/18 ������������������ Date of : 38 Discharge: Report #: [id number] Path Case #: [id number] Note [facility] Accession Number: [id number] TESTS RESULT FLAG UNITS REF RANGE LAB Clinician Provided Cytology Information No. of containers..01 Other (Miscellaneous) Source: RUL WASH DIAGNOSIS: 02 RUL WASH NEGATIVE FOR MALIGNANT CELLS. NORMAL BRONCHIAL CELLS AND MACROPHAGES ARE PRESENT. Pathologist ICD10: 02 J44.9 Signed out by: Candace Lagunas MD, Pathologist NPI- [id number] Performed by: 01 Meghann Saravia, Server Manager ([facility]) Gross description: 01 25ML, WHITE, CLOUDY /LCS FLAG LEGEND: L-Low Normal,H-High Normal,LL-Alert Low,HH-Alert High <-Panic Low,>-Panic High,A-Abnormal,AA-Critical Abnormal Performed at: [address] [place] [address] Danie Saleem MD, [address] [address] Candace Lagunas MD, Specimen Comment: A courtesy copy of this report has been sent to Specimen Comment: [phone], , . Specimen Comment: Report sent to ,DR SMALLS / DR SUN Specimen Comment: A duplicate report has been generated due to demographic updates. Performed at: [address], [place], [place] [id number] MD Danie Saleem MD Phone: [phone]
--- NOTE | 2018-07-26 19:00 | NUR ---
assumed care of pt at 0700, pt is a/o times four, has c/o pain to back and pain meds given as ordered. pt has been afibrile. vss. pt not to be breathing with excessory muscles. bipap on most of the day except during meal times. sr/st on the monitor. will cont to provide care towards goals.
[2018-07-27] VITALS (23 sets, daily range): BP systolic 138–207; BP diastolic 42–100
[2018-07-27 05:25] LABS: ABSOLUTE NEUTROPHILS 13.5 thou/uL (1.4-8.2); BASOPHILS 0.4 % (0.0-2.0); EOSINOPHILS 0.1 % (0.0-3.0); HEMOGLOBIN 7.6 gm/dL (12.0-15.0); LYMPHOCYTES 2.3 % (24.0-44.0); MCH 27.2 pg (26.0-34.0); MCHC 31.5 g/dL (28.0-37.0); MCV 86.4 fL (80.0-100.0); MONOCYTES 4.5 % (1.0-8.0); PLATELET COUNT 269 thou/uL (150-400); POLYS 92.7 % (36.0-66.0); RBC 2.77 mil/uL (4.20-5.00); RDW 20.3 % (10.5-14.5); WBC 14.6 thou/uL (4.0-11.0)
[2018-07-27 05:42] LABS: ALBUMIN 2.4 g/dL (3.4-5.0); ANION GAP < 0 mmol/L (7-16); BUN 27 mg/dL (7-18); CALCIUM 7.9 mg/dL (8.5-10.1); CHLORIDE 100 mmol/L (98-107); CO2 40 mmol/L (21-32); CREATININE 0.7 mg/dL (0.6-1.0); GLUCOSE 154 mg/dL (74-106); POTASSIUM 4.6 mmol/L (3.5-5.1); SGOT 18 U/L (15-37); SGPT 21 U/L (30-65); SODIUM 139 mmol/L (136-145); TOTAL BILIRUBIN 0.3 mg/dL (<0.1-1.0); TOTAL PROTEIN 5.5 g/dL (6.4-8.2)
--- NOTE | 2018-07-27 06:40 | NUR ---
SHIFT NOTE PT ALERT AND ORIENTED. VSS. ASSESSMENT CHARTED. CT TO -20 SUCTION NO AIR LEAK OR SUBQ AIR NOTED. HEPARIN GTT RUNNING. PTT CHECKED IN AM. PT TURNED Q2H AND PRN. PT DID NOT TOLERATE BEING OFF BIPAP TOO LONG DURING SHIFT. PAIN MEDS GIVEN NEEDED. PT CLEANED AND LINENS CHANGED. PT HAD NO S/SX OF CHEST PAIN OR NV. WILL CONTINUE TO MONITOR TILL THE END OF THE SHIFT.
--- NOTE | 2018-07-27 14:06 | NUR ---
FOLLOWING FORO SUPPORT AND DC PLANNING. CLINICAL INFO REVIEWED. 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 REMAINS ON CONTINUOUS BIPAP. DR. NARAYAN MET WITH PT/FAMILY TODAY TO DISCUSS NEWE DX AND RECOMMENDS COMFORT CARE/HOSPICE. DR. RINCON TO MEET WITH FAMILY WELL.
--- NOTE | 2018-07-27 14:30 | NUR ---
PT IS ADMIT WOUNDS PICTURES TAKEN SACRUM AND LEFT LOWER LEG, AND PANUS TO ABDOMEN IS RAW SKIN RED AND IRRITATED. PT HAD TISSUES STUCK IN THERE, REMOVED TOILET PAPER AND PLACED INTER DRY. AND CLEANED. LUNGS ARE DIMINISHED. CLEAN LOWER LEG AND XERFORM AND KERLIX DONE. PAIN MEDS GIVEN RATED 9-10 WITH PAIN FROM WOUNDS. AFIB ON THE MONITOR. BLOOD PRESSURE STABLE APPARENTLY DROPED AT DIALYSIS. AND ON LEVO DRIP NOW WITH STABLE BLOOD PRESSURE. PT IS ALERT AND OREINTED X4. WILL CONTINUE ON GOING NURSING CARE AND WOUND CARE NOTIFIED OF NEW PT.
--- NOTE | 2018-07-27 19:15 | NUR ---
SHIFT SUMMARY: WHEN PT AWAKENED THIS AM, REPOSITIONED TO SIT UPRIGHT IN BED, THEN PLACED ON OPTIFLOW ONLY FOR A FEW MINUTES. PT VERY RESTLESS, AGITATED, HAVING DIFFICULTY BREATHING, RESP LABORED, SHORT OF AIR, THEN REPLACED ON BIPAP. WHEN PT STILL HAVING DIFFICULTY BREATHING WITH BIPAP, MORPHINE 2 MG IV GIVEN FOR AIR HUNGER WITH RELIEF. PT UNABLE TO TAKE ANY PO MEDS. AFTER MORPHINE ADMINISTRATION, SHE CALMED AND WAS ABLE TO REST QUIETLY. UPDATED DR. RINCON, THEN COORDINATED FAMILY CONFERENCE AT NOON. NENO- SPOUSE, LYDIA GALVAN DPOA AND ANOTHER NEICE WERE ALL PRESENT. FAMILY WANTS PT TO BE COMFORTABLE AND CONTINUE CURRENT PLAN OF CARE AT THIS TIME. DURING SHIFT, PT RESTLESS/SHORT OF AIR, ONE TIME SYMPTOMS SPONTANEOUSLY RESOLVED, HOWEVER TWO OTHER TIMES MORPHINE 4 MG ADMINISTERED TO PROVIDE PT COMFORT. ASSOCIATED WITH BREATHING SHE HAD CHEST DISCOMFORT WHICH RELIEVED WITH MORPHINE. SR-90, HEPARIN GTT THERAPEUTIC, PAYTON WITH ADEQUATE URINE OUTPUT. SEE ASSESSMENTS FOR DETAILS. MUCH SUPPORT PROVIDED TO FAMILY, ANSWERED MANY QUESTIONS. PT NOT PROGRESSING.
[2018-07-28] VITALS (14 sets, daily range): BP systolic 135–218; BP diastolic 44–112
--- NOTE | 2018-07-28 06:36 | NUR ---
DROSWY DURING THE NIGHT. FOLLOW SIMPLE COMMANDS AT TIMES. . MORPHINE GIVEN FOR EASE OF BREATHING. ON BIPAP, TOLERATING SETTINGS. AFEBRILE. VSS. ADEQUATE URINE OUTPUT. FREQUENT TURNS. WILL CONTINUE TO MONITOR.
[2018-07-28 07:33] LABS: HEMOGLOBIN 7.3 gm/dL (12.0-15.0); MCH 26.8 pg (26.0-34.0); MCHC 30.3 g/dL (28.0-37.0); MCV 88.5 fL (80.0-100.0); RBC 2.71 mil/uL (4.20-5.00); RDW 20.4 % (10.5-14.5); WBC 14.9 thou/uL (4.0-11.0)
[2018-07-28 07:42] LABS: ALBUMIN 2.5 g/dL (3.4-5.0); ANION GAP < 0 mmol/L (7-16); BUN 32 mg/dL (7-18); CALCIUM 8.5 mg/dL (8.5-10.1); CHLORIDE 101 mmol/L (98-107); CO2 42 mmol/L (21-32); CREATININE 0.7 mg/dL (0.6-1.0); GLUCOSE 154 mg/dL (74-106); POTASSIUM 5.1 mmol/L (3.5-5.1); SGOT 17 U/L (15-37); SGPT 21 U/L (30-65); SODIUM 142 mmol/L (136-145); TOTAL BILIRUBIN 0.3 mg/dL (<0.1-1.0); TOTAL PROTEIN 5.9 g/dL (6.4-8.2)
[2018-07-28 08:02] LABS: PO2 65.7 mmHg (80.0-100.0); sO2 85.8 % (92.0-98.0)
[2018-07-28 08:04] LABS: PCO2 117.8 mmHg (35.0-45.0)
[2018-07-28 09:49] LABS: BE(vivo) 13.6 mmol/L (-2 to +3); HCO3 40.9 mmol/L (22.0-26.0); PO2 64.9 mmHg (80.0-100.0); pH 7.359 (7.360-7.450); sO2 90.9 % (92.0-98.0)
[2018-07-28 09:51] LABS: PCO2 74.3 mmHg (35.0-45.0)
--- NOTE | 2018-07-28 16:12 | NUR ---
1200 FAMILY WISHES TO MAKE PT COMFORT CARE. DR. RINCON CALLED TO REQUEST COMFORT ORDERS. TALKED TO FAMILY, TOLD THEM TO LET RN KNOW WHEN THEY ARE READY TO REMOVE MASK. 1230 FAMILY WISHES TO REMOVE MASK AND PROCEED WITH COMFORT CARE. 1234 RN REMOVED MASK AND GAVE ORDERED MORPHINE DOSE. FAMILY AT BEDSIDE SURROUNDING PT, PT TOLD FAMILY, "DO NOT CRY FOR ME." 1238 PT ASYSTOLE ON MONITOR, NO GASPING, PASSED PEACEFULLY SURROUNDED BY FAMILY. ATTENDING PHYSICIAN AND CONSULTS NOTIFIED OF PASSING. ALL BELONGINGS SENT WITH TRAVIS CHAUHAN, (WATCH, RING, CLOTHING, [employer]) MTN NOTIFIED-PT NOT DONOR
--- NOTE | 2018-08-08 12:06 | PATH ---
[facility] [place] [address] PATHOLOGY RPT PROCEDURE Name: SHANNAN FAITH Room #: 236-P DIS IN M.R.#: [id number] ������������������ Admission: 07/20/18 ������������������ Date of : 38 Discharge: 07/28/18 Report #: [id number] Path Case #: [id number] [facility] Accession Number: [id number] . 01 Material submitted: . lung - RIGHT UPPER LUNG NODULE. Modifiers: right, upper lobe . 01 Clinical history: . Hx breast cancer, multiple lung masses-breast met versus other lung met, right lung mass . 02 Diagnosis: Lung, right upper lung nodule, needle core biopsy: - POORLY DIFFERENTIATED CARCINOMA FAVOR LUNG ORIGIN. (IUV:aliyah; 07/26/2018) MBR/07/26/2018 . 02 Comment: Examination shows a gland forming malignancy with highly pleomorphic nuclei. Immunohistochemical stains are performed on block A1 (breast versus lung is noted). The tumor shows strong remnant of reactivity to CK7. Strong nuclear reactivity is identified in approximately 10-15% of the cells with TTF-1. Napsin A shows granular reactivity within a few cells. CK20, and CDX2 are nonreactive. ER, GCDFP-15, and mammoglobin are nonreactive as well. The nonreactive immunohistochemical stains argue against colonic origin and a breast origin for this tumor. . 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 The current lung nodule does not resemble the breast malignancy. . Co-review: Dr. James Duque. . Findings are discussed with Dr. Megan Doherty at approximately 10:45 a.m. on 07/26/18. . (IUV:veneer jointer offbearer; 07/26/2018) . 02 Addendum: . Special studies report received from [facility], [address] [place] [address], [address], [place], [address], on case [id number], labeled with their number [id number], dated 08/05/2018. . EGFR Gene Mutation Analysis . INTERPRETATION: [address] [address] PATHOLOGY RPT PROCEDURE Name: SHANNAN FAITH Room #: 236-P DIS IN M.R.#: [id number] ������������������ Admission: 07/20/18 ������������������ Date of : 39 Discharge: 07/28/18 Report #: [id number] Path Case #: [id number] Negative for EGFR Mutation. . Indication for Study: Lung Carcinoma . Specimen Site and Type: Paraffin-Embedded Tissue-Lung, RUL . Nucleotide Change: . Amino Acid Change: . Comments: No mutations were detected within the analyzed region of the EGFR gene in the sample provided for analysis. Less than 5% of non-small cell lung carcinoma patients without identifiable mutations are reported to be responsive to EGFR tyrosine kinase inhibitor therapies. Results should be interpreted in conjunction with clinical and other laboratory findings for the most accurate interpretation. . A subgroup of non-small cell lung cancer (NSCLC) patients has shown clinical responsiveness to the epidermal growth factor receptor (EGFR) inhibitors gefitinib (IRESSA) and erlotinib (Tarceva), including never smokers, individuals of ethnicity, and those with adenocarcinoma histology. In the majority of patients with highly responsive tumors, the tumor contains a somatic mutation within the EGFR tyrosine kinase domain. The presence of a somatic EGFR mutation is significantly associated with response to gefitinib and erlotinib, and is strongly predictive of prolonged survival in NSCLC patients. . T790M mutation had been tested but was not detected in this submitted specimen. . This assay is able to detect 5% mutation in a background of wild-type DNA. . See report [id number] for further information. See FISH report [id number] for further information. See report [id number] for further information. . at [employer]. Karan Cancino, Ph.D., ASH DABMG, DABCC, DLMcm, M([facility])cm, WEN([facility])cm . Methodology: Genomic DNA was isolated from the provided tumor specimen. Exons 18 through 21 of the EGFR gene were subjected to SNaPShot multiplex PCR and primer extension for mutation detection. . Table: This Assay Can Detect the Following Mutations [address] [address] PATHOLOGY RPT PROCEDURE Name: SHANNAN FAITH Room #: 236-P DIS IN M.R.#: [id number] ������������������ Admission: 07/20/18 ������������������ Date of : 39 Discharge: 07/28/18 Report #: [id number] Path Case #: [id number] . EGFR EGFR Codon Mutation Approximate % of all EGFR Exon Mutations 18 E709 E709K,E709Q 1% G719 G719S,G719C,G719A,G719D 2-5% 19 Insertions 18bp ins 1% Deletions 9,12,15,18,24 bp del 45% 20 Insertions 3,6,8,12 bp ins 5-10% S768 S768I 1-2% R776 R776C <1% T790 T790M 2% 21 L858 L858R 40% A859 A859T <1% L861 L861Q,L861R 2-5% * This Assay does not distinguish between the 18bp insertion and deletions at nucleotide position 2235 and 2237 . References: 1. Floyd PA, Nicola JA, Taran BE. Epidermal Growth Factor Receptor Mutations in Xcg-Ojggk-Hwio Lung Cancer: Implications for Treatment and Tumor Biology. J. Clin. Oncol. 2005; 23:2270-1139. 2. Angie YEE et al. A Platform for Rapid Detection of Multiple Oncogenic Mutations with Relevance to Targeted Therapy in Yyn-Isset-Obua Lung Cancer. J. Mol. Diagn. 2011;13(1):74-84. . Disclaimer This Test was performed by [facility] [employer]. at [address], [address]. [facility] is a business unit of [employer] a wholly-owned subsidiary of [employer]. . . Any image(s) that accompany this report is/are a b2b sales representative image(s) only and should not be used to render a diagnosis. . This test was developed and its performance characteristics determined by [facility] It has not been cleared or approved by the Food and Drug Administration. . A complete copy of the report is on file. . Professional services performed by [employer]. at [facility] [address] [facility] [address], [place] [address]. Technical services performed by [employer]. at [facility] [address], [facility] [address], [place] [address]. . (AM 08/05/2018) [address] [address] PATHOLOGY RPT PROCEDURE Name: SHANNAN FAITH Room #: 236-P [facility] IN [facility].#: [id number] ������������������ Admission: 07/20/18 ������������������ Date of : 39 Discharge: 07/28/18 Report #: [id number] Path Case #: [id number] . . . . . Special studies report received from [facility], [address] [place] [address], [facility] [address], [place], [address], on case [id number], labeled with their number [id number], dated 08/05/2018. . Fluorescence in situ Hybridization (FISH) Report TargetGene Analysis . RESULT: Negative for ROS1 gene rearrangement . Specimen Type: Tissue, Right Lung . Indication for Study: Lung Carcinoma . INTERPRETATION: Fluorescence in situ hybridization (FISH) analysis was performed on this patient's paraffin embedded tissue specimen using a dual color break apart DNA probe for ROS1. . One hundred interphase nuclei were examined and no evidence of a ROS1 gene specific rearrangement (split signal pattern) was detected. 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 . Genetic changes other than those assayed here cannot be ruled out on the basis of this testing. Correlation with clinical and other pathological findings is suggested for a complete interpretation of these results. . See report [id number] for further information. See report [id number] for further information. See Molecular report [id number] for further information. . The following TargetGene FISH analysis was performed on this patient's specimen: Probe Detection Parameters Result ISCN ROS1 (6q22) Detects a rearrangement Not Detected nuc jann(3'ROS1,5'ROS1) of the ROS1 gene x3 approximately 5 (3'ROS1 con 5'ROS1x3 approximately 5) () . at [facility] [employer]. [address] [address] PATHOLOGY RPT PROCEDURE Name: SHANNAN FAITH Michael Room #: 236-P DIS IN M.R.#: [id number] ������������������ Admission: 07/20/18 ������������������ Date of : 39 Discharge: 07/28/18 Report #: [id number] Path Case #: [id number] Jose Enrique Johnson, PhD, [facility] Senior Mine Equipment Design Engineer, Clinical Cytogenetics . Methodology: The patient specimen is processed onto a glass slide. Fluorescent DNA probe(s) is(are) applied to the cells on the slide under conditions of denaturation followed by hybridization. Stringency washes are applied and the slide is subsequently counterstained. A minimum of 100 interphase nuclei are analyzed unless otherwise indicated above. . References: Kwadwo K, David BRADY, Sarahi WALKER, et al. ROS1 rearrangements define a unique molecular class of lung cancers. J Clin Oncol, 2012;30:863-70. . David BRADY, Sarahi WAY, Ashutosh Y-J, et al. Crizotinib in ROS1-rearranged ytc-lskyt-sjgw lung cancer. N Engl J Med, 2014;371:1963-71 . Disclaimer This Test was performed by [employer]. at [facility], [address]. . [facility] is a business unit of [employer] a wholly-owned subsidiary of [employer]. . This assay has not been validated on decalcified tissues. Results should be interpreted with caution if this specimen was decalcified given the likelihood of false negativity on decalcified specimens. . Any image(s) that accompany this report is/are a b2b sales representative image(s) only and should not be used to render a diagnosis. . This test was developed and its performance characteristics determined by [facility] It has not been cleared or approved by the Food and Drug Administration. . A complete copy of the report is on file. . Professional services performed by [employer]. at [address] [facility], [facility] [address], [place] [address]. Technical services performed by [employer]. at [address] [facility] [address], [place] [address]. . (AMJ 08/05/2018) . . . . [address] [place] [address] PATHOLOGY RPT PROCEDURE Name: SHANNAN FAITH Room #: 236-P [facility] IN M.R.#: [id number] ������������������ Admission: 07/20/18 ������������������ Date of : 39 Discharge: 07/28/18 Report #: [id number] Path Case #: [id number] . Special studies report received from [facility], [address] [place] [address], [address], [place], [address], on case [id number], labeled with their number [id number], dated 08/05/2018. . Fluorescence in situ Hybridization (FISH) Report ALK Analysis . RESULT: No Evidence of ALK Gene Rearrangement Detected by FISH nuc jann(ALKx3 approximately 4)(8/50) . Specimen Type: Tissue, Right Lung . Specimen Fixative Type: 10% Neutral Buffered Formalin . Indication for Study: Lung Carcinoma . INTERPRETATION: Fluorescence in situ hybridization (FISH) analysis was performed on paraffin embedded tissue using an ALK Break Apart DNA probe (FDA approved kit, [employer]) for the detection of rearrangements involving the ALK gene. . Fifty interphase nuclei were examined and no evidence of ALK specific gene rearrangement was detected. However, 16.0% of cells showed one or more additional fusion signals for the ALK DNA sequence located at 2p; likely representing an aneuploidy population with extra copies of chromosome 2/2p ALK region. . Genetic changes other than those assayed here cannot be ruled out on the basis of this testing. . Correlation with clinical and pathological findings is suggested for a complete interpretation of the results. . See FISH report [id number] for further information. See report [id number] for further information. See Molecular report [id number] for further information. . at [employer]. Marychuy Stewart, PhD, [facility] Director of Clinical Cytogenetics . Methodology: FISH was performed using ALK Break Apart FISH Probe Kit (FDA approved, [employer] A minimum of fifty invasive tumor cells were examined from areas that were delineated by [place] [address] PATHOLOGY RPT PROCEDURE Name: SHANNAN FAITH Room #: 236-P [facility] IN [facility].#: [id number] ������������������ Admission: 07/20/18 ������������������ Date of : 39 Discharge: 07/28/18 Report #: [id number] Path Case #: [id number] corresponding H/E slide. A classification of each nucleus as positive or negative is recorded according to director of people's instruction. The results are calculated as a percentage of the total positive cells to total cell analyzed. The normal cutoff was established as 15% using NSCLC FFPE tissue specimen. A negative result is reported when a sample with <15% rearranged cells and a positive result is defined when a sample shown greater than or equal to 15% cells with ALK gene rearrangements. A result is considered uninformative when there are less than 50 invasive tumor cells for FISH analysis. . Intended Use: The ALK Break Apart FISH Probe procedure is a qualitative test to detect rearrangements involving the ALK gene via fluorescence in situ hybridization (FISH) in FFPE NSCLC tissue specimens to aid in identifying those patients eligible for treatment with XALKOR (crizotinib). It is intended for use only on 10% neutral buffered formalin fixed paraffin-embedded NSCLC tissue. The optimal fixation time for tissue is 6-48 hours. The test is for prescription use only. . Disclaimer This Test was performed by [facility]. at [address] [place] [address], [facility] [address], [address]. [employer] is a business unit of [employer] a wholly-owned subsidiary of [employer]. . . This assay has not been validated on decalcified tissues. Results should be interpreted with caution if this specimen was decalcified given the likelihood of false negativity on decalcified specimens. . Any image(s) that accompany this report is/are a b2b sales representative image(s) only and should not be used to render a diagnosis. . A complete copy of the report is on file. . Professional services performed by [employer]. at [address] [place] [address]., [facility] [address], [place] [address]. Technical services performed by [employer]. at [address] [place] [address]., [facility] [address], [place] [address]. . (AMJ 08/05/2018) . AZJ/08/05/2018 Addendum Electronically Signed by Candace Lagunas MD, Pathologist Addendum #2: Special studies report received from [employer], [address] [place] [address], [facility] [address], [place], [address], on case [id number], [address] [address] PATHOLOGY RPT PROCEDURE Name: SHANNAN FAITH Room #: 236-P DIS IN M.R.#: [id number] ������������������ Admission: 07/20/18 ������������������ Date of : 39 Discharge: 07/28/18 Report #: [id number] Path Case #: [id number] labeled with their number [id number], dated 08/05/2018. . Case Cancellation Report . Cancellation Reason: . Case [id number]: IHC 5377: PD-L1 IHC, KEYTRUDA (R): Other Insufficient tumor cells preclude evaluation of PD-L1 Immunohistochemical analysis in the submitted material. At least 100 viable tumor cells are required for interpretation. . . Concurrent Cases: . Case [id number]: FISH: Reported on 08-05-2018 4705: ALK Lung . Case [id number]: FISH: Reported on 08-05-2018 5453: ROS1 rearrangement . Case [id number]: Molecular/PCR: Reported on 08-05-2018 5435: EGFR by PCR . Disclaimer [facility] is a business unit of [employer] a wholly-owned subsidiary of [employer]. . A complete copy of the report is on file. . Professional services performed by [employer]. at [address], [place] [address]. Technical services performed by [employer]. at [address], [place] [address]. . (AMJ 08/08/2018) IZV/08/08/2018 Addendum Electronically Signed by Candace Lagunas MD, Pathologist . 02 Electronically signed: . Candace Lagunas MD, Pathologist NPI- [id number] . 01 Gross description: . Received in formalin labeled "Shannan Faith, right upper lung," are 2 distinct needle cores of pink-weiner, soft tissue ranging from 0.2 to 0.7 cm in length and measuring less than 0.1 cm each in diameter. The specimen [facility] [address] [place] [address] PATHOLOGY RPT PROCEDURE Name: SHANNAN FAITH Room #: 236-P DIS IN M.R.#: [id number] ������������������ Admission: 07/20/18 ������������������ Date of : 39 Discharge: 07/28/18 Report #: [id number] Path Case #: [id number] is submitted entirely in cassette A1. (TSD; 07/22/2018) TOB/TOB . 02 Pathologist provided ICD-10: C34.11 . 02 CPT . 784893, M65003, U07245 Specimen Comment: A courtesy copy of this report has been sent to Specimen Comment: [phone], , . Specimen Comment: Report sent to ,DR SMALLS / DR SUN Performed at: [address] [facility] [address], [place], [place] [id number] MD Danie Saleem MD Phone: [phone] Performed at: [address] [facility] [address] [facility], [place], [place] [address] MD Candace Lagunas MD Phone: [phone]
== END 2018-07-28 16:20 | DRG 166 ==
LOC: ICU 04:00
PROVIDERS: Internal Medicine; Internal Medicine Gastroenterology; Internal Medicine Geriatric Medicine; Internal Medicine Pulmonary Disease; Nurse Practitioner Family; Pediatrics; ADMIT Hospitalist
PROC: 05HY33Z Insertion of Infusion Device into Upper Vein, Percutaneous Approach (ICD-10-PCS; principal; 2018-07-20)
PROC: 30233N1 Transfusion of Nonautologous Red Blood Cells into Peripheral Vein, Percutaneous Approach (ICD-10-PCS; principal; 2018-07-20)
PROC: 5A09357 Assistance with Respiratory Ventilation, Less than 24 Consecutive Hours, Continuous Positive Airway Pressure (ICD-10-PCS; principal; 2018-07-20)
PROC: B54MZZA Ultrasonography of Right Upper Extremity Veins, Guidance (ICD-10-PCS; principal; 2018-07-20)
PROC: B5191ZZ Fluoroscopy of Inferior Vena Cava using Low Osmolar Contrast (ICD-10-PCS; 2018-07-21)
PROC: 5A09357 Assistance with Respiratory Ventilation, Less than 24 Consecutive Hours, Continuous Positive Airway Pressure (ICD-10-PCS; 2018-07-21)
PROC: 06H03DZ Insertion of Intraluminal Device into Inferior Vena Cava, Percutaneous Approach (ICD-10-PCS; 2018-07-21)
PROC: 0BBK3ZX Excision of Right Lung, Percutaneous Approach, Diagnostic (ICD-10-PCS; 2018-07-22)
PROC: 5A09357 Assistance with Respiratory Ventilation, Less than 24 Consecutive Hours, Continuous Positive Airway Pressure (ICD-10-PCS; 2018-07-22)
PROC: 0W9930Z Drainage of Right Pleural Cavity with Drainage Device, Percutaneous Approach (ICD-10-PCS; 2018-07-22)
PROC: 0BC48ZZ Extirpation of Matter from Right Upper Lobe Bronchus, Via Natural or Artificial Opening Endoscopic (ICD-10-PCS; 2018-07-22)
PROC: 5A09357 Assistance with Respiratory Ventilation, Less than 24 Consecutive Hours, Continuous Positive Airway Pressure (ICD-10-PCS; 2018-07-23)
PROC: 5A09357 Assistance with Respiratory Ventilation, Less than 24 Consecutive Hours, Continuous Positive Airway Pressure (ICD-10-PCS; 2018-07-24)
PROC: 5A09357 Assistance with Respiratory Ventilation, Less than 24 Consecutive Hours, Continuous Positive Airway Pressure (ICD-10-PCS; 2018-07-25)
PROC: 5A09357 Assistance with Respiratory Ventilation, Less than 24 Consecutive Hours, Continuous Positive Airway Pressure (ICD-10-PCS; 2018-07-26)
PROC: 5A09357 Assistance with Respiratory Ventilation, Less than 24 Consecutive Hours, Continuous Positive Airway Pressure (ICD-10-PCS; 2018-07-27)
DX: I26.99 Other pulmonary embolism without acute cor pulmonale (principal); J96.01 Acute respiratory failure with hypoxia; J18.9 Pneumonia, unspecified organism; G92 Toxic encephalopathy; J96.02 Acute respiratory failure with hypercapnia; D62 Acute posthemorrhagic anemia; J44.1 Chronic obstructive pulmonary disease with (acute) exacerbation; B37.0 Candidal stomatitis; K92.2 Gastrointestinal hemorrhage, unspecified; J44.0 Chronic obstructive pulmonary disease with (acute) lower respiratory infection; J93.9 Pneumothorax, unspecified; I10 Essential (primary) hypertension; E78.5 Hyperlipidemia, unspecified; G89.29 Other chronic pain; M54.5 Low back pain; I73.9 Peripheral vascular disease, unspecified; E78.00 Pure hypercholesterolemia, unspecified; K21.9 Gastro-esophageal reflux disease without esophagitis; Z96.643 Presence of artificial hip joint, bilateral; Z96.612 Presence of left artificial shoulder joint; K59.00 Constipation, unspecified; D72.829 Elevated white blood cell count, unspecified; R91.8 Other nonspecific abnormal finding of lung field; R59.0 Localized enlarged lymph nodes; M54.30 Sciatica, unspecified side; Z66 Do not resuscitate; E66.01 Morbid (severe) obesity due to excess calories; Z88.6 Allergy status to analgesic agent; Z85.3 Personal history of malignant neoplasm of breast; Z88.1 Allergy status to other antibiotic agents; Z88.8 Allergy status to other drugs, medicaments and biological substances; Z90.49 Acquired absence of other specified parts of digestive tract; Z98.42 Cataract extraction status, left eye; Z98.41 Cataract extraction status, right eye; Z95.820 Peripheral vascular angioplasty status with implants and grafts; Z79.899 Other long term (current) drug therapy; Z79.82 Long term (current) use of aspirin; Z87.11 Personal history of peptic ulcer disease; Z68.35 Body mass index [BMI] 35.0-35.9, adult
CPT/HCPCS: 10078; 27000